=== PATIENT | male | born 1935 | race Caucasian/White ===

== ENCOUNTER 2016-10-11 18:02 | Inpatient (IN) ==
--- NOTE | 2016-10-11 19:52 | Internal Med History&Physical ---
Date of Encounter: 10/11/16 Time of Encounter: 19:47 Assessment and Plan (1) Physical deconditioning Current visit: Yes Status: Acute Patient is weak and has had physical deconditioning/decompensation since his prolonged hospitalization at [facility]. He will be here in a swing bed and have PT , OT, RT as well as prison care to improve his ADLs so he can safely return to home under the care of his . Currently he has to use a bedside commode. Consultations requested. (2) Atrial fibrillation and flutter Current visit: Yes Status: Chronic Patient has a chronic history of atrial fibrillation, intermittently had RVR and at times bradycardia. It was difficult to have him regulated without getting either extreme. Now has a pacemaker placed so we can avoid bradycardia. His diltiazem and beta ab has been increased to try to control the heart rate. He has no cardiac symptoms. He does not sense when he gets tachycardia. He is anticoagulated with Eliquis. (3) Diabetes mellitus Current visit: Yes Status: Chronic He has a long-standing history of diabetes and is well controlled. Continue the same medication for now. Qualifiers: Diabetes mellitus type: type 2 Diabetes mellitus complication status: without complication Diabetes mellitus rodent exterminator insulin use: without senior living use Qualified Code(s): E11.9 - Type 2 diabetes mellitus without complications (4) Hypertension Current visit: Yes Status: Chronic Patient has a history of long-standing hypertension. It is under reasonable control now. We will need to watch for hypotension as we increase his diltiazem and beta ab. Qualifiers: Hypertension type: essential hypertension Qualified Code(s): I10 - Essential (primary) hypertension (5) Parkinson disease Current visit: No Status: Chronic He has a history of Parkinson's with poor gait and decreased facial expression. We will continue the same medication. He appears to be at his baseline. (6) Pacemaker Current visit: Yes Status: Acute Dual chamber pacemaker was placed last Saturday. Occasional pacer spikes are seen on telemetry. Incision is healing well. (7) Pleural effusion Current visit: Yes Status: Acute Small pleural effusion on the left side. Hard to evaluate further because of chronic left diaphragm elevation. Will follow. (8) Chronic anticoagulation Current visit: Yes Status: Chronic Chronic anticoagulation with Eliquis for the atrial fibrillation. No side effects have been noted. Internal Medicine - H&P: HPI Chief complaint: I am here to get stronger Admitted From: Hospital to Hospital Transfer Plans for Post Hospital Care: Home History of present illness: Mr. Bach is a 80 year old male known history of diabetes mellitus, Parkinson' s disease, hypertension, atrial fibrillation who was transferred from [facility] today to swing bed because of deconditioning/weakness due to his cardiac issues. Patient has known history of atrial fibrillation/flutter and had episodes of a fib RVR, then when treated would become bradycardic and vice versa. Eventually he was able to get a pacemaker to help avoid the bradycardia. The pacer was placed last Saturday by Dr. Mueller. Since that time they have been increasing his diltiazem and beta ab to control the rate. There appears to be some underlying atrial flutter as well. Through all of this the patient has had no symptoms. He has had no angina. He has had no CHF. He has had a recent echocardiogram. He has left farideh diaphragm elevation and what appears to be small pleural effusion. Now he is having difficulties regaining his ADLs. He needs much assistance just taking a few steps. He is here for PT, OT, RT and ongoing prison care until he is strong enough to go home. He lives with his in a one- story apartment at [facility]. Past Med Surg Social Fam HX - Past Medical History Medical history: arthritis, atrial fibrillation, dementia, diabetes, GERD, GI bleed, hyperlipidemia, hypertension, SVT, TIA, other (Parkinson's disease) Psychiatric history: no psych history - Past Surgical History Surgical History: other, pacemaker - Social History Smoking Status: Never smoker Smokeless Tobacco Status: No Alcohol use: none Drug use: none Current living situation: Other (Lives with his and a 1 floor apartment at [facility]) Activity Level: Uses cane/walker Recent Out of Country Travel Within the Last 8 Weeks: No Exposure or Possible Exposure to Illness During Travel: No - Family History Father Living Status: Hx Family GI Disorders: Yes (History of hepatitis) Mother Living Status: Hx Family Cardiac Disorders: Yes (Unknown type of heart disease) Hx Family Respiratory Disorders: Yes (Asthma) Hx Family Cancer: Yes (Unknown type cancer) Internal Medicine - H&P: Meds Carbidopa/Levodopa ER 50/200 [Sinemet ER 50-200 Tab] 1 tab PO BID 08/10/15 [ History] Esomeprazole Magnesium [Nexium] 40 mg PO DAILY 08/10/15 [History] Finasteride [Proscar] 5 mg PO DAILY 08/10/15 [History] Lisinopril [Zestril] 10 mg PO DAILY 08/10/15 [History] Magnesium Oxide [Mag-Ox] 400 mg PO BID 08/10/15 [History] Metformin [Glucophage] 1,000 mg PO BIDWM 08/10/15 [History] Pravastatin Sodium [Pravachol] 80 mg PO DAILY 08/10/15 [History] Apixaban [Eliquis] 5 mg PO BID 12/21/15 [History] Oxygen 3 l NS CONT 01/30/16 [History] Promethazine [Phenergan] 25 mg PO Q6HR PRN 09/26/16 [History] Diltiazem CD (24hr) [Cardizem CD] 360 mg PO DAILY #30 cap.er.24h 10/11/16 [Rx] Furosemide [Lasix] 40 mg PO DAILY 10/11/16 [History] Metoprolol XL (24 HR) Succ [Toprol Xl] 100 mg PO BID 30 Days 10/11/16 [Rx] Allergies Hydromorphone [From Dilaudid] Allergy (Unknown, Verified 09/29/16 22:45) See Comments PATIENT UNSURE OF REACTION- NONE LISTED WITH [facility] Sulfa (Sulfonamide Antibiotics) Allergy (Unknown, Verified 09/29/16 22:45) See Comments PATIENT UNSURE OF REACTION- NONE LISTED WITH [facility] atorvastatin [From Lipitor] Adverse Reaction (Verified 09/29/16 22:45) Cramping of the Muscles guaifenesin Adverse Reaction (Verified 09/29/16 22:45) Dry Mucus Membranes - Constitutional Constitutional: weakness, no chills, no fever(s) - EENT Eyes: no loss of vision Ears: no ear discharge, no ear pain Nose, mouth and throat: no mouth pain, no neck pain - Cardiovascular Cardiovascular ROS IM: no chest pain, no dyspnea, no irregular heart rhythm, no lightheadedness, no palpitations - Respiratory Respiratory: no cough, no dyspnea - Gastrointestinal Gastrointestinal: constipation (Dates he has had constipation, but had a good bowel movement yesterday morning.), no abdominal pain, no diarrhea, no hematochezia, no melena - Genitourinary Genitourinary ROS male: no difficulty urinating, no dysuria - Musculoskeletal Musculoskeletal ROS IM: muscle weakness (Generalized muscular weakness with difficulties with walking in particular) - Integumentary Integumentary IM: no rash - Neurological Neurological ROS: no abnormal speech, no radicular pain Additional comments: He has a history of Parkinson's disease, slow gait and difficulties with his walking. He has decompensated since he was hospitalized. - Psychiatric Psychiatric: no auditory hallucinations, no suicidal ideation - Hematologic/Lymphatic Hematologic/Lymphatic: no lymphadenopathy - Constitutional Vitals: Temp Pulse Resp BP Pulse Ox 97.5 F L 78 15 127/76 88 L 10/11/16 18:23 10/11/16 18:23 10/11/16 18:23 10/11/16 18:23 10/11/16 18:23 General appearance: Present: A&O X 3, pleasant, no acute distress, obese Exam: Quiet and sometimes masklike facies - Eye Eye exam: Present: EOMI - ENT ENT exam: Present: mucous membranes moist Additional comments: Poor dentition, some missing teeth - Neck Neck exam general surgery: Absent: lymphadenopathy, tenderness, thyromegaly - Respiratory Additional comments: Slightly diminished breath sounds and crackles in the left base, few atelectatic crackles in the right base. Overall good air exchange. No respiratory distress. - Cardiovascular Cardiovascular exam: Present: irregular rhythm, +S1, +S2. Absent: systolic murmur Additional comments: Heart rate on the monitor is in the 80s. Occasional pacer spikes. Occasional PVC - GI/Abdominal GI/Abdominal exam: Present: soft, no peritoneal signs. Absent: hepatomegaly, tenderness - Extremities Exam Extremities exam: Absent: calf tenderness, pedal edema - Incison Comments: Left upper anterior chest pacemaker site has sterile dressing and Steri-Strips intact. No signs of infection. - Neurological Exam Neurological exam: Present: CN II-XII intact, oriented X3. Absent: speech deficit Additional comments: He is quiet, but can answer questions and speak normally. Masklike facies at times He has good upper body hand grasp. No obvious tremor. It took one person assist to get him to take 2 steps to get on the bedside commode as he is quite weak. Internal Med - H&P Results - Labs Labs: Lab work at [facility] has been reviewed. No significant abnormality in the CBC or in chemistry panel. Glycohemoglobin shows good control.
[2016-10-11] MEDS ORDERED: NON-FORMULARY MEDICATION 1 EACH EACH (Oxygen [Oxygen] 3 L) NS SCH (20:15)
[2016-10-11] MEDS: Magnesium Oxide 400 MG TABLET PO SCH (20:50)
[2016-10-11] MEDS: Carbidopa/Levodopa ER 50/200 TABLET PO SCH (20:50)
[2016-10-11] MEDS: Metoprolol XL (24 HR) Succ 50 MG TAB.ER.24H PO SCH (20:51)
[2016-10-11] MEDS: APIXABAN 5 MG TABLET PO SCH (20:51)
--- NOTE | 2016-10-12 07:22 | Internal Med Progress Note ---
Date of Encounter: 10/12/16 Time of Encounter: 07:17 - Assessment and plan (1) Physical deconditioning Current Visit: Yes Status: Acute Assessment and plan: He will have physical therapy starting today. The goal will be to reattain his ADLs to the point where he can go home and ambulate with his walker (2) Atrial fibrillation and flutter Current Visit: Yes Status: Chronic Assessment and plan: Continues with atrial fibrillation/flutter with controlled rate in the 80s to 90s at rest. We will see what happens with his therapy. May need to increase his meds further if becomes tachycardic. He has a pacer. (3) Diabetes mellitus Current Visit: Yes Status: Chronic Assessment and plan: Mild elevation of glucose to 190 last night. Fasting glucose pending. Overall his glycohemoglobin has been good and will likely not need change in his meds Qualifiers: Diabetes mellitus type: type 2 Diabetes mellitus complication status: without complication Diabetes mellitus local company intermodal truck driver insulin use: without local company intermodal truck driver use Qualified Code(s): E11.9 - Type 2 diabetes mellitus without complications (4) Hypertension Current Visit: Yes Status: Chronic Assessment and plan: Blood pressure has been on the low end of normal, likely due to increased diltiazem and beta ab. Will continue to monitor. Qualifiers: Hypertension type: essential hypertension Qualified Code(s): I10 - Essential (primary) hypertension (5) Parkinson disease Current Visit: No Status: Chronic Assessment and plan: His Parkinson's slows him down and contributes to his deconditioning. He will have therapies starting today. (6) Pacemaker Current Visit: Yes Status: Acute (7) Pleural effusion Current Visit: Yes Status: Acute Assessment and plan: Left diaphragm elevation chronically now with small pleural effusion. Not symptomatic. Will follow. (8) Chronic anticoagulation Current Visit: Yes Status: Chronic - Constitutional Vitals: Temp Pulse Resp BP Pulse Ox 97.7 F 80 16 102/66 93 L 10/12/16 04:51 10/12/16 04:51 10/12/16 04:51 10/12/16 04:51 10/12/16 04:51 General appearance: Present: A&O X 3, pleasant, no acute distress, obese - Respiratory Additional comments: Lungs are clear except for a few at atelectatic crackles in the bases, diminished breath sounds in the left base. No respiratory distress - Cardiovascular Cardiovascular exam: Present: irregular rhythm, +S1, +S2. Absent: systolic murmur Additional comments: Heart rate in the 80s to 90s at rest. Monitor shows atrial fib/flutter - GI/Abdominal GI/Abdominal exam: Present: soft. Absent: tenderness - Extremities Exam Extremities exam: Absent: calf tenderness, tenderness Consult Discharge Plan - Plan Referrals: Peter Mccallum MD [Primary Care Provider] -
[2016-10-12] MEDS: Metoprolol XL (24 HR) Succ 50 MG TAB.ER.24H PO SCH ×2 (08:25→20:17)
[2016-10-12] MEDS: *HR* Metformin 500 MG TABLET PO SCH ×2 (08:26→18:02)
[2016-10-12] MEDS: Carbidopa/Levodopa ER 50/200 TABLET PO SCH ×2 (08:26→20:18)
[2016-10-12] MEDS: Furosemide 20 MG TABLET PO SCH (08:26)
[2016-10-12] MEDS: Diltiazem CD (24hr) 180 MG CAPSULE PO SCH (08:26)
[2016-10-12] MEDS: APIXABAN 5 MG TABLET PO SCH ×2 (08:26→20:18)
[2016-10-12] MEDS: Finasteride 5 MG TABLET PO SCH (08:26)
[2016-10-12] MEDS: Magnesium Oxide 400 MG TABLET PO SCH ×2 (08:26→20:17)
[2016-10-13] MEDS: Diltiazem CD (24hr) 180 MG CAPSULE PO SCH (08:42)
[2016-10-13] MEDS: Furosemide 20 MG TABLET PO SCH (08:42)
[2016-10-13] MEDS: Magnesium Oxide 400 MG TABLET PO SCH ×2 (08:42→21:28)
[2016-10-13] MEDS: *HR* Metformin 500 MG TABLET PO SCH ×2 (08:42→17:09)
[2016-10-13] MEDS: Metoprolol XL (24 HR) Succ 50 MG TAB.ER.24H PO SCH ×2 (08:43→21:30)
[2016-10-13] MEDS: APIXABAN 5 MG TABLET PO SCH ×2 (08:43→21:28)
[2016-10-13] MEDS: Finasteride 5 MG TABLET PO SCH (08:43)
[2016-10-13] MEDS: Carbidopa/Levodopa ER 50/200 TABLET PO SCH ×2 (08:43→21:29)
--- NOTE | 2016-10-13 10:08 | Internal Med Progress Note ---
Date of Encounter: 10/13/16 Time of Encounter: 09:55 - Assessment and plan (1) Pacemaker Current Visit: Yes Status: Acute Assessment and plan: Monitor shows atrial fibrillation/flutter. Rate is controlled. Unable to increase his rate control meds now with the pacemaker in place. (2) Physical deconditioning Current Visit: Yes Status: Acute Assessment and plan: he patient feels he is improving. We will continue therapy as at present. He lives with his in a single floor apartment and goal is to have him discharged to home. He is agreeable to this plan. (3) Pleural effusion Current Visit: Yes Status: Acute Assessment and plan: Overall stable. Decreased breath sounds are noted. He denies symptoms of shortness of breath. (4) Atrial fibrillation and flutter Current Visit: Yes Status: Chronic Assessment and plan: Rate is controlled on metoprolol and diltiazem. (5) Chronic anticoagulation Current Visit: Yes Status: Chronic Assessment and plan: Continue Eliquis. (6) Diabetes mellitus Current Visit: Yes Status: Chronic Assessment and plan: Blood sugars been 94-173 on metformin. BUN and creatinine were normal on October 10. 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 Qualifiers: Hypertension type: essential hypertension Qualified Code(s): I10 - Essential (primary) hypertension (8) Acute kidney injury Current Visit: No Status: Acute (9) Atrial fibrillation Current Visit: No Status: Acute Qualifiers: Atrial fibrillation type: persistent Qualified Code(s): I48.1 - Persistent atrial fibrillation (10) Atrial fibrillation with rapid ventricular response Current Visit: No Status: Acute (11) Atrial flutter Current Visit: No Status: Acute Qualifiers: Atrial flutter type: unspecified Qualified Code(s): I48.92 - Unspecified atrial flutter (12) Bradycardia, drug induced Current Visit: No Status: Acute (13) Community acquired pneumonia Current Visit: No Status: Acute (14) DVT prophylaxis Current Visit: No Status: Acute (15) Gastroenteritis Current Visit: No Status: Acute (16) Hypomagnesemia Current Visit: No Status: Acute (17) Hypovolemic shock Current Visit: No Status: Acute (18) Hypoxia Current Visit: No Status: Acute (19) SVT (supraventricular tachycardia) Current Visit: No Status: Acute (20) Tachy-jose syndrome Current Visit: No Status: Acute (21) Atrial fibrillation Current Visit: No Status: Chronic Qualifiers: Atrial fibrillation type: paroxysmal Qualified Code(s): I48.0 - Paroxysmal atrial fibrillation (22) CAD (coronary artery disease) Current Visit: No Status: Chronic Qualifiers: Coronary Disease-Associated Artery/Lesion type: [place] artery [place] vs. transplanted heart: [place] heart Associated angina: without angina Qualified Code(s): I25.10 - Atherosclerotic heart disease of [place] coronary artery without angina pectoris (23) Chronic respiratory failure Current Visit: No Status: Chronic Qualifiers: Respiratory failure complication: hypoxia Qualified Code(s): J96.11 - Chronic respiratory failure with hypoxia (24) Congestive heart failure Current Visit: No Status: Chronic Qualifiers: Congestive heart failure type: diastolic Congestive heart failure chronicity: chronic Qualified Code(s): I50.32 - Chronic diastolic (congestive ) heart failure (25) Coronary artery disease with stable angina pectoris Current Visit: No Status: Chronic Qualifiers: Coronary Disease-Associated Artery/Lesion type: [place] artery [place] vs. transplanted heart: [place] heart Qualified Code(s): I25.118 - Atherosclerotic heart disease of [place] coronary artery with other forms of angina pectoris (26) Dementia Current Visit: No Status: Chronic Qualifiers: Qualified Code(s): F03.90 - Unspecified dementia without behavioral disturbance (27) Diastolic heart failure Current Visit: No Status: Chronic Qualifiers: Heart failure chronicity: chronic Qualified Code(s): I50.32 - Chronic diastolic (congestive) heart failure (28) History of chronic atrial fibrillation Current Visit: No Status: Chronic (29) Hyperlipidemia Current Visit: No Status: Chronic Qualifiers: Hyperlipidemia type: unspecified Qualified Code(s): E78.5 - Hyperlipidemia , unspecified (30) Parkinson disease Current Visit: No Status: Chronic Assessment and plan: He demonstrates some bradykinesia consistent with his Parkinson's. Continue Sinemet. (31) Type II diabetes mellitus Current Visit: No Status: Chronic Qualifiers: Diabetes mellitus complication status: without complication Qualified Code( s): E11.9 - Type 2 diabetes mellitus without complications - Time Spent With Patient 25 - 35 minutes - Subjective Interval history: The patient has no specific complaints today. He feels he's made some progress with getting a little better strength since coming here for rehabilitation. He denies any symptoms of palpitation at all. He states his appetite is improving and he's been eating about half of his meals. He denies chest pain or shortness of breath. - Constitutional Vitals: Temp Pulse Resp BP Pulse Ox 98.3 F 75 14 131/71 95 10/13/16 07:00 10/13/16 07:00 10/13/16 07:00 10/13/16 07:00 10/13/16 07:00 General appearance: Present: A&O X 3, pleasant, no acute distress, obese, answers questions appropriately Exam: He is not unpleasant but he does seem to avoid eye contact to some degree. - Respiratory Respiratory exam: Present: CTAB. Absent: accessory muscle use, rales, rhonchi, wheezes Additional comments: He does demonstrate decreased breath sounds at the left base. - Cardiovascular Cardiovascular exam: Present: irregular rhythm, +S1, +S2. Absent: diastolic murmur, gallop, rubs, systolic murmur Additional comments: Rhythm is irregularly irregular. Heart rate this morning is 75. Blood pressures 131/71. I looked at the air sampling and monitoring she is in atrial fibrillation/ flutter. O2 sat is 95%. - GI/Abdominal GI/Abdominal exam: Present: soft, no peritoneal signs. Absent: distended, guarding, mass, rebound, tenderness - Extremities Exam Extremities exam: Present: warm. Absent: calf tenderness, cyanotic, pedal edema Consult Discharge Plan - Plan Referrals: Peter Mccallum MD [Primary Care Provider] -
[2016-10-14] MEDS: Metoprolol XL (24 HR) Succ 50 MG TAB.ER.24H PO SCH ×2 (07:57→20:50)
[2016-10-14] MEDS: *HR* Metformin 500 MG TABLET PO SCH ×2 (07:57→16:05)
[2016-10-14] MEDS: Furosemide 20 MG TABLET PO SCH (07:57)
[2016-10-14] MEDS: Diltiazem CD (24hr) 180 MG CAPSULE PO SCH (07:57)
[2016-10-14] MEDS: Finasteride 5 MG TABLET PO SCH (07:57)
[2016-10-14] MEDS: Magnesium Oxide 400 MG TABLET PO SCH ×2 (07:57→20:49)
[2016-10-14] MEDS: APIXABAN 5 MG TABLET PO SCH ×2 (07:57→20:50)
[2016-10-14] MEDS: Carbidopa/Levodopa ER 50/200 TABLET PO SCH ×2 (07:58→20:50)
--- NOTE | 2016-10-14 12:15 | Internal Med Progress Note ---
Date of Encounter: 10/14/16 Time of Encounter: 12:00 - Assessment and plan (1) Pacemaker Current Visit: Yes Status: Acute Assessment and plan: I don't see any paced beats on the monitor. He has follow-up visit with Dr. Mueller on October 17. We'll leave his sutures and until then. (2) Physical deconditioning Current Visit: Yes Status: Acute Assessment and plan: He is making progress with therapy. Plan is for discharge home to his apartment with his . (3) Pleural effusion Current Visit: Yes Status: Acute Assessment and plan: He denies shortness of breath. (4) Atrial fibrillation and flutter Current Visit: Yes Status: Chronic (5) Chronic anticoagulation Current Visit: Yes Status: Chronic Assessment and plan: Continue Eliquis, he may eventually get ablation. (6) Diabetes mellitus Current Visit: Yes Status: Chronic Assessment and plan: Fingerstick blood sugars are 160, 120 and 216. We can continue as at present. He 's on metformin but his renal function is okay. Qualifiers: Diabetes mellitus type: type 2 Diabetes mellitus complication status: without complication Diabetes mellitus halfway insulin use: without marine oil terminal superintendent use Qualified Code(s): E11.9 - Type 2 diabetes mellitus without complications (7) Hypertension Current Visit: Yes Status: Chronic Assessment and plan: Blood pressure is at goal at 131/71. Qualifiers: Hypertension type: essential hypertension Qualified Code(s): I10 - Essential (primary) hypertension (8) Acute kidney injury Current Visit: No Status: Acute Assessment and plan: Recent renal function was normal. (9) Atrial fibrillation Current Visit: No Status: Acute Assessment and plan: I'm Hari HassanDwayne. Qualifiers: Atrial fibrillation type: persistent Qualified Code(s): I48.1 - Persistent atrial fibrillation (10) Atrial fibrillation with rapid ventricular response Current Visit: No Status: Acute Assessment and plan: Rate is controlled. (11) Atrial flutter Current Visit: No Status: Acute Qualifiers: Atrial flutter type: unspecified Qualified Code(s): I48.92 - Unspecified atrial flutter (12) Bradycardia, drug induced Current Visit: No Status: Acute (13) Community acquired pneumonia Current Visit: No Status: Acute (14) DVT prophylaxis Current Visit: No Status: Acute Assessment and plan: On TONNY hose, anticoagulated. (15) Gastroenteritis Current Visit: No Status: Acute (16) Hypomagnesemia Current Visit: No Status: Acute (17) Hypovolemic shock Current Visit: No Status: Acute (18) Hypoxia Current Visit: No Status: Acute (19) SVT (supraventricular tachycardia) Current Visit: No Status: Acute (20) Tachy-jose syndrome Current Visit: No Status: Acute (21) Atrial fibrillation Current Visit: No Status: Chronic Qualifiers: Atrial fibrillation type: paroxysmal Qualified Code(s): I48.0 - Paroxysmal atrial fibrillation (22) CAD (coronary artery disease) Current Visit: No Status: Chronic Qualifiers: Coronary Disease-Associated Artery/Lesion type: campo artery [place] vs. transplanted heart: campo heart Associated angina: without angina Qualified Code(s): I25.10 - Atherosclerotic heart disease of campo coronary artery without angina pectoris (23) Chronic respiratory failure Current Visit: No Status: Chronic Qualifiers: Respiratory failure complication: hypoxia Qualified Code(s): J96.11 - Chronic respiratory failure with hypoxia (24) Congestive heart failure Current Visit: No Status: Chronic Assessment and plan: Denies shortness breath or chest discomfort. Qualifiers: Congestive heart failure type: diastolic Congestive heart failure chronicity: chronic Qualified Code(s): I50.32 - Chronic diastolic (congestive ) heart failure (25) Coronary artery disease with stable angina pectoris Current Visit: No Status: Chronic Assessment and plan: Asymptomatic. Qualifiers: Coronary Disease-Associated Artery/Lesion type: campo artery [place] vs. transplanted heart: campo heart Qualified Code(s): I25.118 - Atherosclerotic heart disease of campo coronary artery with other forms of angina pectoris (26) Dementia Current Visit: No Status: Chronic Qualifiers: Qualified Code(s): F03.90 - Unspecified dementia without behavioral disturbance (27) Diastolic heart failure Current Visit: No Status: Chronic Qualifiers: Heart failure chronicity: chronic Qualified Code(s): I50.32 - Chronic diastolic (congestive) heart failure (28) History of chronic atrial fibrillation Current Visit: No Status: Chronic (29) Hyperlipidemia Current Visit: No Status: Chronic Qualifiers: Hyperlipidemia type: unspecified Qualified Code(s): E78.5 - Hyperlipidemia , unspecified (30) Parkinson disease Current Visit: No Status: Chronic Assessment and plan: He seems a little improved today. He is able to feed himself easily. I observed his gait yesterday with the walker and therapist, he is doing pretty well. (31) Type II diabetes mellitus Current Visit: No Status: Chronic Qualifiers: Diabetes mellitus complication status: without complication Qualified Code( s): E11.9 - Type 2 diabetes mellitus without complications - Time Spent With Patient 25 - 35 minutes - Subjective Interval history: No complaints today. His is present for my visit today. She feels he is making progress. Her goal is for him to be ambulatory enough to get along all right in their apartment when he goes home. He denies palpitations, shortness of breath or chest discomfort. She tells me he has a follow-up appointment with his giving officer Dr. Mueller in 3 days. They're hoping to eventually do an ablation so he doesn't have to stay on anticoagulant. - Constitutional Vitals: Temp Pulse Resp BP Pulse Ox 98.5 F 88 16 120/86 94 L 10/14/16 11:48 10/14/16 11:48 10/14/16 11:48 10/14/16 11:48 10/14/16 11:48 General appearance: Present: A&O X 3, pleasant, no acute distress, obese, answers questions appropriately Exam: He seems a little more energetic today. He and his interact in a positive manner. - Respiratory Respiratory exam: Absent: accessory muscle use, rales, respiratory distress, rhonchi, wheezes Additional comments: Decreased breath sounds at left base consistent with his pleural effusion. - Cardiovascular Cardiovascular exam: Present: irregular rhythm (His rhythm is irregularly irregular.I reviewed his telemetry strip which shows a fib, rate controlled.), + S1, +S2. Absent: diastolic murmur, gallop, rubs, systolic murmur - Extremities Exam Extremities exam: Present: warm. Absent: calf tenderness, cyanotic, pedal edema - Neurological Exam Additional comments: Bradykinesia seems a little improved. I observed that he is able to feed himself easily and has a good appetite. Consult Discharge Plan - Plan Referrals: Peter Mccallum MD [Primary Care Provider] -
--- NOTE | 2016-10-15 07:09 | Internal Med Progress Note ---
Date of Encounter: 10/15/16 Time of Encounter: 07:01 - Assessment and plan (1) Physical deconditioning Current Visit: Yes Status: Acute Assessment and plan: He will resume therapies today. Continued restrictions to the left upper extremity due to his pacemaker. Will plan to increase his ADLs and functional capacity so we can go home. (2) Atrial fibrillation and flutter Current Visit: Yes Status: Chronic Assessment and plan: Continued atrial fib/flutter with controlled heart rate typically in the 80s. Continue current medication. Blood pressure stable. (3) Diabetes mellitus Current Visit: Yes Status: Chronic Assessment and plan: Sugars are minimally elevated. No coverage needed. Qualifiers: Diabetes mellitus type: type 2 Diabetes mellitus complication status: without complication Diabetes mellitus building engineer insulin use: without building engineer use Qualified Code(s): E11.9 - Type 2 diabetes mellitus without complications (4) Hypertension Current Visit: Yes Status: Chronic Assessment and plan: Blood pressure is under good control. Qualifiers: Hypertension type: essential hypertension Qualified Code(s): I10 - Essential (primary) hypertension (5) Parkinson disease Current Visit: No Status: Chronic Assessment and plan: Stable at this time. No exacerbation. (6) Pacemaker Current Visit: Yes Status: Acute Assessment and plan: The pacemaker site looks good. Dressing removed and Steri-Strips intact and clean and dry. There is no tenderness. We will have follow up with Dr. Mueller on Saturday. (7) Pleural effusion Current Visit: Yes Status: Acute Assessment and plan: No symptoms. (8) Chronic anticoagulation Current Visit: Yes Status: Chronic (9) Abdominal mass Current Visit: Yes Status: Acute Assessment and plan: Today he has a firm abdominal mass with dullness to percussion. He has no complaints or tenderness. No nausea or vomiting. I suspect this is a distended bladder or possibly stool. We will do a bladder scan 1st. We also need to add a stool softener or laxative. Qualifiers: Abdominal location: periumbilical Qualified Code(s): R19.05 - Periumbilic swelling, mass or lump - Subjective Interval history: Patient denies a cardiac type chest pain or palpitations, dyspnea or abdominal pain. He states his bowels have not moved since he was admitted 4 days ago. His bowels do not move everyday at home. He thinks he his urinating okay. He denies any fever or chills. According to records he is eating well. No bowel movement documented. Nurses report that he is using a walker and bedside commode. He states he has not been walking in the hallways, using a wheelchair to go to therapy. - Constitutional Vitals: Temp Pulse Resp BP Pulse Ox 99.0 F 84 16 120/82 91 L 10/15/16 01:00 10/15/16 01:00 10/15/16 01:00 10/15/16 01:00 10/15/16 01:00 General appearance: Present: A&O X 3, pleasant, no acute distress, obese, answers questions appropriately - Respiratory Additional comments: Rare dry crackles in the basis. The respiratory distress. No orthopnea. Lungs are otherwise clear. - Cardiovascular Cardiovascular exam: Present: irregular rhythm, +S1, +S2. Absent: systolic murmur - GI/Abdominal Additional comments: Large firm " mass" in the umbilical area with dullness to percussion. It is nontender. Bowel sounds are diminished but present in the lateral quadrants. There is no guarding or rebound or rigidity. There is no tight distention. - Extremities Exam Extremities exam: Absent: calf tenderness, tenderness - Incison Comments: Pacemaker site was evaluated. Dressing was removed and discarded. There is no drainage. The Steri-Strips are intact. There is no redness, fluctulence or tenderness. - Neurological Exam Additional comments: Flat affect as usual. Masklike facies. No tremor, but paucity of movement noted Consult Discharge Plan - Plan Referrals: Peter Mccallum MD [Primary Care Provider] -
[2016-10-15] MEDS: Metoprolol XL (24 HR) Succ 50 MG TAB.ER.24H PO SCH ×2 (09:14→20:33)
[2016-10-15] MEDS: Furosemide 20 MG TABLET PO SCH (09:15)
[2016-10-15] MEDS: Carbidopa/Levodopa ER 50/200 TABLET PO SCH ×2 (09:15→20:34)
[2016-10-15] MEDS: *HR* Metformin 500 MG TABLET PO SCH ×2 (09:15→17:20)
[2016-10-15] MEDS: APIXABAN 5 MG TABLET PO SCH ×2 (09:15→20:33)
[2016-10-15] MEDS: Finasteride 5 MG TABLET PO SCH (09:15)
[2016-10-15] MEDS: Magnesium Oxide 400 MG TABLET PO SCH ×2 (09:15→20:34)
[2016-10-15] MEDS: Diltiazem CD (24hr) 180 MG CAPSULE PO SCH (09:15)
--- NOTE | 2016-10-16 06:53 | Internal Med Progress Note ---
Date of Encounter: 10/16/16 Time of Encounter: 06:48 - Assessment and plan (1) Physical deconditioning Current Visit: Yes Status: Acute Assessment and plan: He will continue with therapies. Goal is to regain his ADL so he can be safe to go home. (2) Atrial fibrillation and flutter Current Visit: Yes Status: Chronic Assessment and plan: Continues with atrial flutter/fib with controlled rate typically in the 80s. He is anticoagulated. (3) Diabetes mellitus Current Visit: Yes Status: Chronic Assessment and plan: Sugars are under adequate control. Qualifiers: Diabetes mellitus type: type 2 Diabetes mellitus complication status: without complication Diabetes mellitus [facility] insulin use: without ferry terminal supervisor use Qualified Code(s): E11.9 - Type 2 diabetes mellitus without complications (4) Hypertension Current Visit: Yes Status: Chronic Assessment and plan: Blood pressure well-controlled. Sometimes on the low side and will follow. Qualifiers: Hypertension type: essential hypertension Qualified Code(s): I10 - Essential (primary) hypertension (5) Parkinson disease Current Visit: No Status: Chronic (6) Pacemaker Current Visit: Yes Status: Acute Assessment and plan: He has his pacemaker checked tomorrow by the boarder hand. (7) Pleural effusion Current Visit: Yes Status: Acute (8) Chronic anticoagulation Current Visit: Yes Status: Chronic (9) Abdominal mass Current Visit: Yes Status: Resolved Assessment and plan: The "mass" was his bladder with 1800 ML's of urine. Continue straight intermittently for acute retention Qualifiers: Abdominal location: periumbilical Qualified Code(s): R19.05 - Periumbilic swelling, mass or lump (10) Urinary retention Current Visit: Yes Status: Acute Assessment and plan: Straight cath intermittently for urine retention. Encourage frequent toileting - Subjective Interval history: Patient denies any acute symptoms or problems this morning. He said that he did sleep. He had urinary retention of 1800 ML's yesterday morning, and has needed intermittent catheterization. There are times when he is not interested in trying to empty his bladder. The retention is in the 700 to 800 ML's at times. He denies any cardiac or respiratory symptoms. No abdominal pain. When asked how his therapy went yesterday, he said he could not walk because of his knee brace. He feels like his knee will give out. He states he has not been walking. He has been eating well and bowels have moved. - Constitutional Vitals: Temp Pulse Resp BP Pulse Ox 98.4 F 83 16 110/72 87 L 10/16/16 05:00 10/16/16 05:00 10/16/16 05:00 10/16/16 05:00 10/16/16 05:00 General appearance: Present: A&O X 3, pleasant, no acute distress, obese, answers questions appropriately - Respiratory Respiratory exam: Present: CTAB - Cardiovascular Cardiovascular exam: Present: irregular rhythm, +S1, +S2. Absent: systolic murmur - GI/Abdominal GI/Abdominal exam: Present: soft. Absent: mass, tenderness - Extremities Exam Extremities exam: Absent: calf tenderness, pedal edema Additional comments: He is wearing a soft right knee brace/sleeve. He has good range of motion passively. No edema. No redness. Consult Discharge Plan - Plan Referrals: Peter Mccallum MD [Primary Care Provider] -
[2016-10-16] MEDS: Finasteride 5 MG TABLET PO SCH (08:39)
[2016-10-16] MEDS: Magnesium Oxide 400 MG TABLET PO SCH ×2 (08:39→20:38)
[2016-10-16] MEDS: Diltiazem CD (24hr) 180 MG CAPSULE PO SCH (08:39)
[2016-10-16] MEDS: Furosemide 20 MG TABLET PO SCH (08:39)
[2016-10-16] MEDS: APIXABAN 5 MG TABLET PO SCH ×2 (08:40→20:37)
[2016-10-16] MEDS: Carbidopa/Levodopa ER 50/200 TABLET PO SCH ×2 (08:40→20:38)
[2016-10-16] MEDS: Metoprolol XL (24 HR) Succ 50 MG TAB.ER.24H PO SCH ×2 (08:40→20:38)
[2016-10-16] MEDS: *HR* Metformin 500 MG TABLET PO SCH ×2 (08:40→18:12)
[2016-10-17] MEDS: Metoprolol XL (24 HR) Succ 50 MG TAB.ER.24H PO SCH ×2 (07:53→21:29)
[2016-10-17] MEDS: *HR* Metformin 500 MG TABLET PO SCH ×2 (07:53→17:45)
[2016-10-17] MEDS: Magnesium Oxide 400 MG TABLET PO SCH ×2 (07:53→21:30)
[2016-10-17] MEDS: Finasteride 5 MG TABLET PO SCH (07:54)
[2016-10-17] MEDS: Diltiazem CD (24hr) 180 MG CAPSULE PO SCH (07:54)
[2016-10-17] MEDS: APIXABAN 5 MG TABLET PO SCH ×2 (07:54→21:29)
[2016-10-17] MEDS: Carbidopa/Levodopa ER 50/200 TABLET PO SCH ×2 (07:54→21:30)
[2016-10-17] MEDS: Furosemide 20 MG TABLET PO SCH (07:54)
--- NOTE | 2016-10-17 14:53 | Electrocardiograph Report ---
[place] [address] Test Date: 2016-10-17 Pat Name: Cole Bach Department: [id number] Room: 115 Gender: M Global [employer]: : [id number] Requested By: Peter Mccallum Order Number: [id number] Reading MD: Beverly Mueller Measurements Intervals Blount Rate: 60 P: VT: 0 QRS: -42 QRSD: 145 T: 73 QT: 482 QTc: 482 Interpretive Statements ELECTRONIC VENTRICULAR PACEMAKER Electronically Signed On 10-17-2016 14:51:08 EST by Beverly Mueller
--- NOTE | 2016-10-17 22:36 | Internal Med Progress Note ---
Date of Encounter: 10/17/16 Time of Encounter: 22:30 - Assessment and plan (1) Physical deconditioning Current Visit: Yes Status: Acute Assessment and plan: He has a tentative discharge date of Saturday if he resumes therapy and does well. (2) Atrial fibrillation and flutter Current Visit: Yes Status: Chronic Assessment and plan: He saw Dr. Mueller the cement sack breaker today. Lanoxin has been added. No other intervention needed. He did not think he needed to see him for 6 months. No angina. No CHF. (3) Diabetes mellitus Current Visit: Yes Status: Chronic Qualifiers: Diabetes mellitus type: type 2 Diabetes mellitus complication status: without complication Diabetes mellitus long-term insulin use: without long-term use Qualified Code(s): E11.9 - Type 2 diabetes mellitus without complications (4) Hypertension Current Visit: Yes Status: Chronic Qualifiers: Hypertension type: essential hypertension Qualified Code(s): I10 - Essential (primary) hypertension (5) Parkinson disease Current Visit: No Status: Chronic (6) Pacemaker Current Visit: Yes Status: Acute (7) Pleural effusion Current Visit: Yes Status: Acute (8) Chronic anticoagulation Current Visit: Yes Status: Chronic (9) Abdominal mass Current Visit: Yes Status: Resolved Qualifiers: Abdominal location: periumbilical Qualified Code(s): R19.05 - Periumbilic swelling, mass or lump (10) Urinary retention Current Visit: Yes Status: Acute - Subjective Interval history: Patient voices no acute symptoms. Denies chest pain, palpitation, respiratory symptoms. Nurses report that he refused to have therapy when he came back from the cement sack breaker office today. He has had to be straight cathed for urine retention. - Constitutional Vitals: Temp Pulse Resp BP Pulse Ox 98.6 F 92 14 102/71 91 L 10/17/16 21:00 10/17/16 21:00 10/17/16 21:00 10/17/16 21:00 10/17/16 21:00 General appearance: Present: A&O X 3, pleasant, no acute distress, obese, answers questions appropriately - Respiratory Respiratory exam: Present: CTAB - Cardiovascular Cardiovascular exam: Present: irregular rhythm, +S1, +S2. Absent: systolic murmur - GI/Abdominal GI/Abdominal exam: Present: soft. Absent: tenderness - Extremities Exam Extremities exam: Absent: calf tenderness, pedal edema, tenderness Consult Discharge Plan - Plan Referrals: Peter Mccallum MD [Primary Care Provider] -
[2016-10-18 05:35] LABS: Basophils # 0.1 K/mcL (0.0-0.2); Basophils % 0.5 %; Eosinophils # 0.5 K/mcL (0.0-0.6); Eosinophils % 4.6 %; Hematocrit 31.7 % (37.5-50.1); Hemoglobin 10.6 g/dL (12.9-16.9); Immature Granulocytes % 1.1 % (0-4); Lymphocytes # 1.1 K/mcL (0.6-4.6); Mean Corpuscular HGB Conc 33.4 g/dL (31.6-35.5); Mean Corpuscular Hemoglobin 31.1 pg (28.0-33.3); Mean Platelet Volume 9.1 fL (9.4-12.4); Monocytes # 0.9 K/mcL (0.0-1.3); Monocytes % 8.8 %; Neutrophils # 7.2 K/mcL (1.6-8.9); Platelet Count 275 K/mcL (140-400); Red Blood Count 3.41 M/mcL (4.19-5.50); Red Cell Distribution Width 14.1 % (11.5-14.5)
[2016-10-18 05:51] LABS: BUN/Creatinine Ratio 22 (6-26); Blood Urea Nitrogen 20 mg/dL (8-26); Calcium 8.8 mg/dL (8.6-10.8); Carbon Dioxide 27 mEq/L (19-29); Chloride 101 mEq/L (98-109); Chol/HDL Ratio 3.3 (0-4.9); Cholesterol 106 mg/dL (< 200); Glucose 97 mg/dL (70-99); HDL Cholesterol 32 mg/dL (40-59); LDL Cholesterol,Calculated 53 mg/dL (0-99); Osmolality,Calculated 291 (280-300); Potassium 3.9 mEq/L (3.5-4.5); Sodium 139 mEq/L (136-145); Triglycerides 105 mg/dL (< 150); eGFR For African Americans > 60 (> 60); eGFR For Non-African Americans > 60 (> 60)
[2016-10-18] MEDS: Metoprolol XL (24 HR) Succ 50 MG TAB.ER.24H PO SCH ×2 (09:04→20:57)
[2016-10-18] MEDS: Diltiazem CD (24hr) 180 MG CAPSULE PO SCH (09:04)
[2016-10-18] MEDS: APIXABAN 5 MG TABLET PO SCH ×2 (09:04→20:57)
[2016-10-18] MEDS: *HR* Digoxin 0.125 MG TABLET PO SCH (09:04)
[2016-10-18] MEDS: Furosemide 20 MG TABLET PO SCH (09:04)
[2016-10-18] MEDS: *HR* Metformin 500 MG TABLET PO SCH ×2 (09:04→17:17)
[2016-10-18] MEDS: Finasteride 5 MG TABLET PO SCH (09:04)
[2016-10-18] MEDS: Carbidopa/Levodopa ER 50/200 TABLET PO SCH ×2 (09:04→20:57)
[2016-10-18] MEDS: Magnesium Oxide 400 MG TABLET PO SCH ×2 (09:05→20:57)
--- NOTE | 2016-10-18 12:13 | Internal Med Progress Note ---
Date of Encounter: 10/18/16 Time of Encounter: 11:54 - Assessment and plan (1) Physical deconditioning Current Visit: Yes Status: Acute Assessment and plan: He is undergoing PT and OT for deconditioning following his hospitalization at [facility]. It is reported that the therapies feel he will be able and safe to be discharged to home tomorrow. (2) Atrial fibrillation and flutter Current Visit: Yes Status: Chronic Assessment and plan: Continue atrial fib/flutter but controlled rate. Lanoxin/dig started today as per the advanced solutions architect recommendation. (3) Diabetes mellitus Current Visit: Yes Status: Chronic Assessment and plan: Sugars are minimally elevated. Overall glycohemoglobin is showing good control. Qualifiers: Diabetes mellitus type: type 2 Diabetes mellitus complication status: without complication Diabetes mellitus [facility] insulin use: without [facility] use Qualified Code(s): E11.9 - Type 2 diabetes mellitus without complications (4) Hypertension Current Visit: Yes Status: Chronic Assessment and plan: Blood pressure is adequately controlled. Qualifiers: Hypertension type: essential hypertension Qualified Code(s): I10 - Essential (primary) hypertension (5) Parkinson disease Current Visit: No Status: Chronic Assessment and plan: Neurologically he is stable. (6) Pacemaker Current Visit: Yes Status: Acute Assessment and plan: Pacemaker site looks good. Steri-Strips in place and no signs of infection. (7) Pleural effusion Current Visit: Yes Status: Acute (8) Chronic anticoagulation Current Visit: Yes Status: Chronic (9) Abdominal mass Current Visit: Yes Status: Inactive Qualifiers: Abdominal location: periumbilical Qualified Code(s): R19.05 - Periumbilic swelling, mass or lump (10) Urinary retention Current Visit: Yes Status: Acute Assessment and plan: Continued urinary retention. He seems to be resistant to having the nurses catheterize him and resistant to frequent toileting to prevent retention. Risks discussed with patient. - Subjective Interval history: Patient denies any acute symptoms. He denies any chest pain, palpitation, dyspnea. He is participating in therapy. He is resisting straight catheterization of his bladder for retained urine. - Constitutional Vitals: Temp Pulse Resp BP Pulse Ox 97.7 F 76 20 98/63 95 10/18/16 11:51 10/18/16 11:51 10/18/16 11:51 10/18/16 11:51 10/18/16 11:51 General appearance: Present: A&O X 3, pleasant, no acute distress, obese, answers questions appropriately - Respiratory Respiratory exam: Present: CTAB - Cardiovascular Cardiovascular exam: Present: irregular rhythm, +S1, +S2. Absent: systolic murmur - GI/Abdominal Additional comments: Bladder appears to be distended to the level of the umbilicus. His abdomen is nontender. No guarding or rebound or rigidity. - Extremities Exam Extremities exam: Absent: calf tenderness, pedal edema Internal Medicine: Result - Labs CBC & Chem 7: 10/18/16 05:10 10/18/16 05:10 Labs: Short CBC 10/18/16 Range/Units 05:10 WBC 9.7 (4.3-11.1) K/mcL Hgb 10.6 L (12.9-16.9) g/dL Hct 31.7 L (37.5-50.1) % Plt Count 275 (140-400) K/mcL Neutrophils # 7.2 (1.6-8.9) K/mcL BMP 10/18/16 05:10 Sodium 139 Potassium 3.9 Chloride 101 Carbon Dioxide 27 BUN 20 Creatinine 0.93 Glucose 97 Calcium 8.8 Consult Discharge Plan - Plan Referrals: Peter Mccallum MD [Primary Care Provider] -
--- NOTE | 2016-10-18 22:17 | Physician Discharge Referral ---
Home Health/Hosp Referral Info Transfer to: Home Health Attending Provider: Peter Mccallum Provider in Charge Post Discharge: PCP - Diagnosis (1) Physical deconditioning Priority: Primary Status: Acute (2) Atrial fibrillation and flutter Priority: Secondary Status: Chronic (3) Diabetes mellitus Priority: Secondary Status: Chronic (4) Hypertension Priority: Secondary Status: Chronic (5) Parkinson disease Priority: Secondary Status: Chronic (6) Pacemaker Priority: Secondary Status: Acute (7) Pleural effusion Priority: Secondary Status: Acute (8) Chronic anticoagulation Priority: Secondary Status: Chronic (9) Urinary retention Priority: Secondary Status: Acute - Respiratory Orders Oxygen / L per min (2-3 L/NC) Smoking Cessation: Smoking cessation has been advised. For more information, call the Teach Me To Be Tobacco Quit Line at 2-889-MNNF-NOW. - Dressing/Wound Care Site: Left ant chest / pacemaker incision Type of Dressing/Treatments w/Frequency: steristrips,no intervention needed - Diet/Nutrition Diet/Nutrition Orders: No Concentrated Sweets - Activity Activity Orders: Walker - Services Needed Following services are medically necessary services: Nursing, Physical Therapy - Transfer Medications Prescriptions: Furosemide [Lasix] 40 mg PO DAILY #30 tablet Metoprolol XL (24 HR) Succ [Toprol Xl] 100 mg PO BID #60 tab.er.24h Home Medications: Carbidopa/Levodopa ER 50/200 [Sinemet ER 50-200 Tab] 1 tab PO BID 08/10/15 [ History] Esomeprazole Magnesium [Nexium] 40 mg PO DAILY 08/10/15 [History] Finasteride [Proscar] 5 mg PO DAILY 08/10/15 [History] Lisinopril [Zestril] 10 mg PO DAILY 08/10/15 [History] Magnesium Oxide [Mag-Ox] 400 mg PO BID 08/10/15 [History] Metformin [Glucophage] 1,000 mg PO BIDWM 08/10/15 [History] Pravastatin Sodium [Pravachol] 80 mg PO DAILY 08/10/15 [History] Apixaban [Eliquis] 5 mg PO BID 12/21/15 [History] Oxygen 3 l NS CONT 01/30/16 [History] Diltiazem CD (24hr) [Cardizem CD] 360 mg PO DAILY #30 cap.er.24h 10/11/16 [Rx] Metoprolol XL (24 HR) Succ [Toprol Xl] 100 mg PO BID 30 Days 10/11/16 [Rx] Furosemide [Lasix] 40 mg PO DAILY #30 tablet 10/18/16 [Rx] Metoprolol XL (24 HR) Succ [Toprol Xl] 100 mg PO BID #60 tab.er.24h 10/18/16 [Rx ] Allergies/Adverse Reactions: Allergies Hydromorphone [From Dilaudid] Allergy (Unknown, Verified 09/29/16 22:45) See Comments PATIENT UNSURE OF REACTION- NONE LISTED WITH [facility] Sulfa (Sulfonamide Antibiotics) Allergy (Unknown, Verified 09/29/16 22:45) See Comments PATIENT UNSURE OF REACTION- NONE LISTED WITH [facility] atorvastatin [From Lipitor] Adverse Reaction (Verified 09/29/16 22:45) Cramping of the Muscles guaifenesin Adverse Reaction (Verified 09/29/16 22:45) Dry Mucus Membranes Certification: Further, I certify that my clinical findings support that this patient is homebound (i.e. absences from home require considerable and taxing effort and are for medical reasons or gnosticism services or infrequently or short duration when for other reasons) because: Patient has troubles with ambulation. He has generalized weakness. He is requiring physical therapy. He requires oxygen therapy continuously. Homebound Reason: Patient requires assistance of a person or device to safely leave home, Leaving home requires considerable and taxing effort due to condition, Severity of cardiac or pulmonary status limits activity tolerance Attestation: My signature below is to certify that this patient is under my care and that I, or nurse practitioner, or a physician's gift shop assistant working with me, has a face-to -face encounter with this patient.
--- NOTE | 2016-10-18 22:28 | Discharge Summary ---
Date of Encounter: 10/19/16 Time of Encounter: 07:00 - Discharge Diagnosis (1) Physical deconditioning Priority: Primary Status: Acute Comments: Patient was admitted to [facility] swing bed following extended stay at [place] for cardiac issues fibrillation/flutter and required pacemaker placement. He was too weak to go home to maintain his ADLs. He was transferred to our facility and underwent PT and OT. Therapy departments feel he is at the point where it is safe to send him home and have ongoing home health and home physical therapy. (2) Atrial fibrillation and flutter Priority: Secondary Status: Chronic Comments: Patient has a history of atrial fibrillation/flutter that was difficult to control as he developed either bradycardia or tachycardia. Pacemaker was placed and bradycardia. His beta ab and calcium channel ab was increased and cardiology added Lanoxin this week. He continues with an irregular heart rhythm and rate controlled in the 80s typically. He has no cardiac symptoms. No CHF or angina. (3) Diabetes mellitus Priority: Secondary Status: Chronic Comments: As long-standing history of diabetes. His blood sugars have been minimally elevated. His glycohemoglobin is 6.0%. He continues with his oral agents. No other intervention needed for now. He should avoid concentrated sweets. Qualifiers: Diabetes mellitus type: type 2 Diabetes mellitus complication status: without complication Diabetes mellitus change number operator insulin use: without change number operator use Qualified Code(s): E11.9 - Type 2 diabetes mellitus without complications (4) Hypertension Priority: Secondary Status: Chronic Comments: History of hypertension. It is well controlled now. No significant hypotension despite increasing his medication for his dysrhythmia. Qualifiers: Hypertension type: essential hypertension Qualified Code(s): I10 - Essential (primary) hypertension (5) Parkinson disease Priority: Secondary Status: Chronic Comments: His true Parkinson's disease and takes Sinemet. He is slow with his gait and has paucity of facial and speech. No significant cogwheeling tremor noted. No difficulties with swallowing. (6) Pacemaker Priority: Secondary Status: Acute Comments: Regular placed to prevent bradycardia. The pacemaker site is healing well. Steri-Strips are intact. He had follow-up with Dr. Mueller this week. (7) Pleural effusion Priority: Secondary Status: Acute Comments: Small left pleural effusion noted on chest x-ray. Patient has had no respiratory compromise. Lasix was increased. No other intervention for now. (8) Chronic anticoagulation Priority: Secondary Status: Chronic Comments: Because of his atrial fibrillation/flutter he is taking Eliquis. No side effects have been noted. (9) Urinary retention Priority: Secondary Status: Acute Comments: In the hospital stay he was noted to have urinary retention. At one time he had 1800 mL's of urine. He has required intermittent straight catheterization. Has not had to have the nurses straight catheter as often as ordered. He said things would work out well at home and he refused frequent toileting. This will be followed at home and may need urological consultation. Renal function/creatinine is normal. - Discharge Medications Prescriptions: Furosemide [Lasix] 40 mg PO DAILY #30 tablet Home Medications: Carbidopa/Levodopa ER 50/200 [Sinemet ER 50-200 Tab] 1 tab PO BID 08/10/15 [ History] Esomeprazole Magnesium [Nexium] 40 mg PO DAILY 08/10/15 [History] Finasteride [Proscar] 5 mg PO DAILY 08/10/15 [History] Lisinopril [Zestril] 10 mg PO DAILY 08/10/15 [History] Magnesium Oxide [Mag-Ox] 400 mg PO BID 08/10/15 [History] Metformin [Glucophage] 1,000 mg PO BIDWM 08/10/15 [History] Pravastatin Sodium [Pravachol] 80 mg PO DAILY 08/10/15 [History] Apixaban [Eliquis] 5 mg PO BID 12/21/15 [History] Oxygen 3 l NS CONT 01/30/16 [History] Diltiazem CD (24hr) [Cardizem CD] 360 mg PO DAILY #30 cap.er.24h 10/11/16 [Rx] Metoprolol XL (24 HR) Succ [Toprol Xl] 100 mg PO BID 30 Days 10/11/16 [Rx] Furosemide [Lasix] 40 mg PO DAILY #30 tablet 10/18/16 [Rx] Allergies/Adverse Reactions: Allergies Hydromorphone [From Dilaudid] Allergy (Unknown, Verified 09/29/16 22:45) See Comments PATIENT UNSURE OF REACTION- NONE LISTED WITH [facility] Sulfa (Sulfonamide Antibiotics) Allergy (Unknown, Verified 09/29/16 22:45) See Comments PATIENT UNSURE OF REACTION- NONE LISTED WITH [facility] atorvastatin [From Lipitor] Adverse Reaction (Verified 09/29/16 22:45) Cramping of the Muscles guaifenesin Adverse Reaction (Verified 09/29/16 22:45) Dry Mucus Membranes Procedures/tests Complete & Pending: Procedures Performed prior 72 hours Category Date Time Status ECG 12 lead ECG [ECG] Routine Y 10/17/16 13:38 Completed Laboratory Results - last 24 hr 10/18/16 10/18/16 10/18/16 05:10 05:10 05:10 WBC 9.7 RBC 3.41 L Hgb 10.6 L Hct 31.7 L MCV 93.0 MCH 31.1 MCHC 33.4 RDW 14.1 Plt Count 275 MPV 9.1 L Immature Gran % 1.1 Seg Neutrophils % 74.0 Lymphocytes % 11.0 Monocytes % 8.8 Eosinophils % 4.6 Basophils % 0.5 Neutrophils # 7.2 Lymphocytes # 1.1 Monocytes # 0.9 Eosinophils # 0.5 Basophils # 0.1 Sodium 139 Potassium 3.9 Chloride 101 Carbon Dioxide 27 BUN 20 Creatinine 0.93 Est GFR ( Amer) > 60 Est GFR (Non-Af Amer) > 60 BUN/Creatinine Ratio 22 Glucose 97 POC Glucose Est Mean Plasma Glucose 126 Hemoglobin A1c 6.0 H Calculated Osmolality 291 Calcium 8.8 Triglycerides 105 Cholesterol 106 LDL Cholesterol, Calc 53 VLDL Cholesterol, Calc 21 HDL Cholesterol 32 L Cholesterol/HDL Ratio 3.3 10/18/16 10/18/16 10/18/16 07:50 11:36 16:26 WBC RBC Hgb Hct MCV MCH MCHC RDW Plt Count MPV Immature Gran % Seg Neutrophils % Lymphocytes % Monocytes % Eosinophils % Basophils % Neutrophils # Lymphocytes # Monocytes # Eosinophils # Basophils # Sodium Potassium Chloride Carbon Dioxide BUN Creatinine Est GFR ( Amer) Est GFR (Non-Af Amer) BUN/Creatinine Ratio Glucose POC Glucose 103 H 158 H 115 H Est Mean Plasma Glucose Hemoglobin A1c Calculated Osmolality Calcium Triglycerides Cholesterol LDL Cholesterol, Calc VLDL Cholesterol, Calc HDL Cholesterol Cholesterol/HDL Ratio 10/18/16 20:56 WBC RBC Hgb Hct MCV MCH MCHC RDW Plt Count MPV Immature Gran % Seg Neutrophils % Lymphocytes % Monocytes % Eosinophils % Basophils % Neutrophils # Lymphocytes # Monocytes # Eosinophils # Basophils # Sodium Potassium Chloride Carbon Dioxide BUN Creatinine Est GFR ( Amer) Est GFR (Non-Af Amer) BUN/Creatinine Ratio Glucose POC Glucose 141 H Est Mean Plasma Glucose Hemoglobin A1c Calculated Osmolality Calcium Triglycerides Cholesterol LDL Cholesterol, Calc VLDL Cholesterol, Calc HDL Cholesterol Cholesterol/HDL Ratio Date of admission: 10/11/16 18:19 Primary care physician: Peter Mccallum MD Consults: 10/11/16 18:40 Consult to Occupational Therapy [CONS] Routine Comment: Evaluate, develop and implement POC Consult to Physical Therapy [CONS] Routine Comment: Evaluate, develop and implement POC Consult to Recreational Therapy [CONS] Routine Comment: Evaluate, develop and implement POC Discharging clinician: Peter Mccallum Anticipated date of discharge: 10/19/16 - Patient Status Disposition: Home Health Service Condition: Good Functional capacity at discharge: uses cane/walker Overall status at discharge: patient is progressing back to baseline - Discharge Instructions Follow Up With: Peter Mccallum MD [Primary Care Provider] - - Diet and Activity Activity: ambulate only with your walker, as per physical therapy, wear oxygen at all times Diet: diabetic diet Interval History: This morning he has no symptoms of chest pain, palpitations, irregular heartbeat , dyspnea, abdominal pain. The nursing staff states that he was not willing to get up to try to urinate prior to needing bladder straight catheterization. He states he will urinate on his own at home. No constipation. He feels like he is ready to go home and has been ambulating with his walker. Hospital course: Mr. Bach is a 80 year old male of atrial fib/flutter and episodes of tachycardia and bradycardia was transferred to our facility from [place] where he underwent pacemaker placement to avoid bradycardia and his tachycardia was rate controlled. He was sent to her facility because of deconditioning so we can get PT and OT prior to going home. Medically he has been stable during this stay with heart rate in the 80s typically. He has had no angina or CHF. He has been displayed with PT and OT and they feel that he is safe with his ADLs to be managed at home with home health care as well as home physical therapy in the care of his . His other medical problems including hypertension diabetes and Parkinson's disease were under good control while hospitalized. Please see the diagnoses and discussions. - Time Spent with Patient Total time spent providing and/or coordinating discharge services: - Constitutional Vitals: Temp Pulse Resp BP Pulse Ox 97.9 F 72 16 134/76 94 L 10/18/16 19:00 10/18/16 19:00 10/18/16 19:00 10/18/16 19:00 10/18/16 19:00 General appearance: Present: A&O X 3, pleasant, no acute distress, obese, answers questions appropriately - Respiratory Respiratory exam: Present: CTAB - Cardiovascular Cardiovascular exam: Present: irregular rhythm, +S1, +S2. Absent: systolic murmur, tachycardia - GI/Abdominal GI/Abdominal exam: Present: soft. Absent: mass, tenderness - Extremities Exam Extremities exam: Absent: calf tenderness, pedal edema
[2016-10-19] MEDS: Metoprolol XL (24 HR) Succ 50 MG TAB.ER.24H PO SCH (08:00)
[2016-10-19] MEDS: Furosemide 20 MG TABLET PO SCH (08:00)
[2016-10-19] MEDS: *HR* Metformin 500 MG TABLET PO SCH (08:01)
[2016-10-19] MEDS: *HR* Digoxin 0.125 MG TABLET PO SCH (08:01)
[2016-10-19] MEDS: Finasteride 5 MG TABLET PO SCH (08:01)
[2016-10-19] MEDS: APIXABAN 5 MG TABLET PO SCH (08:01)
[2016-10-19] MEDS: Carbidopa/Levodopa ER 50/200 TABLET PO SCH (08:01)
[2016-10-19] MEDS: Diltiazem CD (24hr) 180 MG CAPSULE PO SCH (08:01)
[2016-10-19] MEDS: Magnesium Oxide 400 MG TABLET PO SCH (08:01)
[2016-10-19 11:54] VITALS: BP 110/67
== END 2016-10-19 15:20 | disposition home health service (06) | DRG 308 ==
LOC: INPGRE 18:19
PROVIDERS: ADMIT Family Medicine; ATTEND Family Medicine

== ENCOUNTER 2017-03-14 04:49 | Observation (INO) ==
--- NOTE | 2017-03-14 05:26 | Emergency Department Note ---
Disposition Clinical Impression: Lactic acidosis Pneumonia Qualifiers: Pneumonia type: due to unspecified organism Laterality: left Lung location: lower lobe of lung Qualified Code(s): J18.1 - Lobar pneumonia, unspecified organism Disposition: Admitted As Inpatient Time of Disposition: 07:24 Altered Mental Status HPI - General Chief Complaint: ED Altered Mental Status Stated Complaint: Mental Status Change Time Seen by Provider: 03/14/17 05:14 Source: family, EMS Limitations: no limitations, altered mental status, physical limitation Nursing Notes Reviewed: Yes Vital Signs Reviewed: Yes - History of Present Illness HPI Narrative: states that patient has had a bad bout with his Parkinson's this week. He has had difficulty getting out of bed and has not been eating or drinking as usual. He did not have a fever or any specific complaints but tonight he was on the commode and could hardly sit upright, showed a hard time getting him up and down to bed and she states that he was not responding to her as usual. She reports his urine was extremely foul and the last time he had these mental status changes he had a urinary tract infection MD complaint: altered mental status Onset (ago): day(s) Timing confirmed by: spouse Pain Scale: 0 Consistency of Symptoms: getting worse Context: history of similar presentation, other (Parkinsons) Associated symptoms: Reports: other (denies pain) - Related Data Home Medications Medication Instructions Recorded Confirmed Carbidopa/Levodopa ER 50/200 1 tab PO BID 08/10/15 03/14/17 [Sinemet ER 50-200 Tab] Esomeprazole Magnesium [Nexium] 40 mg PO DAILY 08/10/15 03/14/17 Finasteride [Proscar] 5 mg PO DAILY 08/10/15 03/14/17 Magnesium Oxide [Mag-Ox] 400 mg PO BID 08/10/15 03/14/17 Metformin [Glucophage] 1,000 mg PO BIDWM 08/10/15 03/14/17 Pravastatin Sodium [Pravachol] 80 mg PO DAILY 08/10/15 03/14/17 Oxygen 3 l NS CONT 01/30/16 03/14/17 Digoxin [Lanoxin] 125 mcg PO DAILY 11/22/16 03/14/17 Warfarin [Coumadin] 2 mg PO 1800 12/27/16 03/14/17 Metoprolol XL (24 HR) Succ [Toprol 100 mg PO DAILY 02/11/17 03/14/17 Xl] Previous Rx's Medication Instructions Recorded Diltiazem CD (24hr) [Cardizem CD] 360 mg PO DAILY #30 cap.er.24h 10/11/16 Furosemide [Lasix] 20 mg PO DAILY #30 tablet 11/25/16 Allergies Allergy/AdvReac Type Severity Reaction Status Date / Time Hydromorphone [From Dilaudid] Allergy Unknown See Verified 03/14/17 04:58 Comments Sulfa (Sulfonamide Allergy Unknown See Verified 03/14/17 04:58 Antibiotics) Comments atorvastatin [From Lipitor] AdvReac Cramping Verified 03/14/17 04:58 of the Muscles guaifenesin AdvReac Dry Mucus Verified 03/14/17 04:58 Membranes All systems ED: reviewed and negative except as stated. Endocrine: Reports: fatigue Past Medical History - Past Medical History Medical history: Reports: arthritis, atrial fibrillation, diabetes, GERD, GI bleed, hyperlipidemia, hypertension, SVT, TIA, other Surgical history: Reports: other, pacemaker Psychiatric history: Reports: no psych history - Social History Smoking Status: Never smoker Smokeless Tobacco Status: No Alcohol use: Reports: none Drug use: Reports: none Physical Exam Constitutional: Patient is restful but has mask facies and stares straight ahead. states that this is baseline. He is not usually very verbal and has not been for years. Skin color is pale Appears well hydrated, body habitus elderly and frail . Non toxic appearing. Head: Normocephalic and atraumatic. External ear exam normal Nose: Nose normal. Mouth/Throat: Uvula is midline, oropharynx is clear and moist and mucous membranes are normal. Eyes: Conjunctivae nl, extraocular motions and lids are normal. Pupils are equal , round, and reactive to light. Neck: Normal range of motion and phonation normal. Neck supple. Cardiovascular: Normal rate, regular rhythm, normal heart sounds. Pulmonary/Chest: No Respiratory distress. Respiratory Effort normal and breath sounds clear. Abdominal: Soft. Normal appearance and bowel sounds are normal. no tenderness, no masses, no guarding, no rebound Musculoskeletal: Good distal pulses. Soft compartments. Brisk cap refill. Extremities: Normal range of motion.Intact peripheral pulses. No Edema. Extremity skin color nl, no calf tenderness or palpable cords. Neurological: Patient is alert and oriented without evidence of obvious motor deficits In his mouth and extrude his tongue, moves both legs away when I do [place] both of which are downgoing cannot really cooperate for strand and binder controller strength or Romberg testing Skin: Skin is warm, dry and intact. color is normal, turgor is good, cap refill is quick Psychiatric: Patient has depressed mood and flat affect. Patient is nonverbal for me but does shake his head and not his head appropriately to questioning - General Limitations: altered mental status, physical limitation General appearance: alert, in no apparent distress Course - Reevaluation(s) Reevaluation #1: Radiograph of difficulty passing Cast catheter. Finally daily catheter was passed. Urine is dark and foul-smelling. Patient has possible pneumonia at the left base. Lactate is significantly high. Antibiotics ordered. Fluids for sepsis protocol. Patient will require hospitalization where ICUs available Time: 07:08 Reevaluation #2: there are no beds availabile at [facility]. he is DNR-CC. DISC CASE W/ DR Alcantara WHO agrees pt can be admitted here. we discc antibiotic choice.disc INR level and anticoagulation. He will see patient in a few hours and would appreciate me placing admission orders as a courtesy he agrees w/ fluids adminiistered. Time: 07:20 Vital Signs Temperature 97.2 F L 03/14/17 04:49 Pulse Rate 82 03/14/17 04:49 Respiratory Rate 16 03/14/17 04:49 Blood Pressure 133/74 03/14/17 04:49 O2 Sat by Pulse Oximetry 99 03/14/17 04:49 Temperature 97.2 F L 03/14/17 04:49 Pulse Rate 73 03/14/17 06:52 Respiratory Rate 16 03/14/17 06:52 Blood Pressure 128/81 03/14/17 06:52 O2 Sat by Pulse Oximetry 100 03/14/17 06:52 Oxygen Delivery Oxygen Delivery Nasal Cannula Altered Mental Status - Differential Diagnosis Likely: altered mental status, delirium, dementia, hyponatremia, sepsis - Medical Records Medical records reviewed: Yes I reviewed the patient's medical records. recent admit for elev trop (has chronic trop elevation) and LUQ pain w/ nl ct - Lab Data Lab results reviewed: Yes I reviewed the patient's lab results. Result diagrams: 03/14/17 05:20 03/14/17 05:20 Lab Results 03/14/17 03/14/17 03/14/17 Range/Units 05:20 05:20 05:20 WBC 12.1 H (4.3-11.1) K/mcL RBC 3.92 L (4.19-5.50) M/mcL Hgb 12.6 L (12.9-16.9) g/dL Hct 35.7 L (37.5-50.1) % MCV 91.1 (83.0-100.0) fL MCH 32.1 (28.0-33.3) pg MCHC 35.3 (31.6-35.5) g/dL RDW 13.2 (11.5-14.5) % Plt Count 304 (140-400) K/mcL MPV 9.2 L (9.4-12.4) fL Immature Gran % 0.5 (0-4) % Seg Neutrophils % 84.3 % Lymphocytes % 7.4 % Monocytes % 6.2 % Eosinophils % 1.4 % Basophils % 0.2 % Neutrophils # 10.2 H (1.6-8.9) K/mcL Lymphocytes # 0.9 (0.6-4.6) K/mcL Monocytes # 0.8 (0.0-1.3) K/mcL Eosinophils # 0.2 (0.0-0.6) K/mcL Basophils # 0.0 (0.0-0.2) K/mcL PT 25.7 H (9.4-12.1) Seconds INR 2.3 APTT 36.7 H (26.0-36.0) Seconds VBG Lactic Acid (0.5-2.2) mmol/L Sodium 137 (136-145) mEq/L Potassium 3.8 (3.5-4.5) mEq/L Chloride 97 L (98-109) mEq/L Carbon Dioxide 25 (19-29) mEq/L BUN 15 (8-26) mg/dL Creatinine 0.81 (0.72-1.25) mg/dL Est GFR ( Amer) > 60 (> 60) Est GFR (Non-Af Amer) > 60 (> 60) BUN/Creatinine Ratio 19 (6-26) Glucose 140 H (70-99) mg/dL Calculated Osmolality 287 (280-300) Calcium 9.3 (8.6-10.8) mg/dL Total Bilirubin 0.6 (0.2-1.2) mg/dL Direct Bilirubin 0.3 (0.0-0.5) mg/dL Indirect Bilirubin 0.3 (0.0-1.2) mg/dL AST 10 (5-34) Units/L ALT < 6 (0-55) Units/L Alkaline Phosphatase 45 (38-126) Units/L Troponin I (0-0.03) ng/mL Serum Total Protein 6.4 (6.0-8.3) g/dL Albumin 3.7 (3.5-5.0) g/dL Globulin 2.7 (2.4-3.5) g/dL Albumin/Globulin Ratio 1.4 (1.1-2.2) Urine Color (Yellow) Urine Clarity (Clear) Urine pH (5.0-8.0) pH Units Ur Specific [place] (1.010-1.025) Urine Protein (Neg-Trace) mg/dL Urine Glucose (UA) (Normal) mg/dL Urine Ketones (Negative) mg/dL Urine Blood (Negative) Urine Nitrite (Negative) Urine Bilirubin (Negative) Urine Urobilinogen (Normal) mg/dL Ur Leukocyte Esterase (Negative) Urine Microscopic WBC (0-3) per hpf Ur Squamous Epith Cells (None-Few) per lpf Urine Bacteria (None-Few) per hpf Ur Culture Indicated? (NO) Digoxin (0.8-2.0) ng/mL Ethyl Alcohol < 10 (0-10) mg/dL 03/14/17 03/14/17 03/14/17 Range/Units 05:20 05:20 05:20 WBC (4.3-11.1) K/mcL RBC (4.19-5.50) M/mcL Hgb (12.9-16.9) g/dL Hct (37.5-50.1) % MCV (83.0-100.0) fL MCH (28.0-33.3) pg MCHC (31.6-35.5) g/dL RDW (11.5-14.5) % Plt Count (140-400) K/mcL MPV (9.4-12.4) fL Immature Gran % (0-4) % Seg Neutrophils % % Lymphocytes % % Monocytes % % Eosinophils % % Basophils % % Neutrophils # (1.6-8.9) K/mcL Lymphocytes # (0.6-4.6) K/mcL Monocytes # (0.0-1.3) K/mcL Eosinophils # (0.0-0.6) K/mcL Basophils # (0.0-0.2) K/mcL PT (9.4-12.1) Seconds INR APTT (26.0-36.0) Seconds VBG Lactic Acid 4.5 H* (0.5-2.2) mmol/L Sodium (136-145) mEq/L Potassium (3.5-4.5) mEq/L Chloride (98-109) mEq/L Carbon Dioxide (19-29) mEq/L BUN (8-26) mg/dL Creatinine (0.72-1.25) mg/dL Est GFR ( Amer) (> 60) Est GFR (Non-Af Amer) (> 60) BUN/Creatinine Ratio (6-26) Glucose (70-99) mg/dL Calculated Osmolality (280-300) Calcium (8.6-10.8) mg/dL Total Bilirubin (0.2-1.2) mg/dL Direct Bilirubin (0.0-0.5) mg/dL Indirect Bilirubin (0.0-1.2) mg/dL AST (5-34) Units/L ALT (0-55) Units/L Alkaline Phosphatase (38-126) Units/L Troponin I 0.06 H* (0-0.03) ng/mL Serum Total Protein (6.0-8.3) g/dL Albumin (3.5-5.0) g/dL Globulin (2.4-3.5) g/dL Albumin/Globulin Ratio (1.1-2.2) Urine Color (Yellow) Urine Clarity (Clear) Urine pH (5.0-8.0) pH Units Ur Specific [place] (1.010-1.025) Urine Protein (Neg-Trace) mg/dL Urine Glucose (UA) (Normal) mg/dL Urine Ketones (Negative) mg/dL Urine Blood (Negative) Urine Nitrite (Negative) Urine Bilirubin (Negative) Urine Urobilinogen (Normal) mg/dL Ur Leukocyte Esterase (Negative) Urine Microscopic WBC (0-3) per hpf Ur Squamous Epith Cells (None-Few) per lpf Urine Bacteria (None-Few) per hpf Ur Culture Indicated? (NO) Digoxin < 0.3 L (0.8-2.0) ng/mL Ethyl Alcohol (0-10) mg/dL 03/14/17 Range/Units 06:50 WBC (4.3-11.1) K/mcL RBC (4.19-5.50) M/mcL Hgb (12.9-16.9) g/dL Hct (37.5-50.1) % MCV (83.0-100.0) fL MCH (28.0-33.3) pg MCHC (31.6-35.5) g/dL RDW (11.5-14.5) % Plt Count (140-400) K/mcL MPV (9.4-12.4) fL Immature Gran % (0-4) % Seg Neutrophils % % Lymphocytes % % Monocytes % % Eosinophils % % Basophils % % Neutrophils # (1.6-8.9) K/mcL Lymphocytes # (0.6-4.6) K/mcL Monocytes # (0.0-1.3) K/mcL Eosinophils # (0.0-0.6) K/mcL Basophils # (0.0-0.2) K/mcL PT (9.4-12.1) Seconds INR APTT (26.0-36.0) Seconds VBG Lactic Acid (0.5-2.2) mmol/L Sodium (136-145) mEq/L Potassium (3.5-4.5) mEq/L Chloride (98-109) mEq/L Carbon Dioxide (19-29) mEq/L BUN (8-26) mg/dL Creatinine (0.72-1.25) mg/dL Est GFR ( Amer) (> 60) Est GFR (Non-Af Amer) (> 60) BUN/Creatinine Ratio (6-26) Glucose (70-99) mg/dL Calculated Osmolality (280-300) Calcium (8.6-10.8) mg/dL Total Bilirubin (0.2-1.2) mg/dL Direct Bilirubin (0.0-0.5) mg/dL Indirect Bilirubin (0.0-1.2) mg/dL AST (5-34) Units/L ALT (0-55) Units/L Alkaline Phosphatase (38-126) Units/L Troponin I (0-0.03) ng/mL Serum Total Protein (6.0-8.3) g/dL Albumin (3.5-5.0) g/dL Globulin (2.4-3.5) g/dL Albumin/Globulin Ratio (1.1-2.2) Urine Color Yellow (Yellow) Urine Clarity Clear (Clear) Urine pH 7.0 (5.0-8.0) pH Units Ur Specific [place] 1.015 (1.010-1.025) Urine Protein Trace (Neg-Trace) mg/dL Urine Glucose (UA) Normal (Normal) mg/dL Urine Ketones Trace H (Negative) mg/dL Urine Blood Negative (Negative) Urine Nitrite Negative (Negative) Urine Bilirubin Negative (Negative) Urine Urobilinogen Normal (Normal) mg/dL Ur Leukocyte Esterase Trace H (Negative) Urine Microscopic WBC 0-3 (0-3) per hpf Ur Squamous Epith Cells Few (None-Few) per lpf Urine Bacteria Moderate H (None-Few) per hpf Ur Culture Indicated? YES A (NO) Digoxin (0.8-2.0) ng/mL Ethyl Alcohol (0-10) mg/dL - Radiology Data Radiology results reviewed: Yes I reviewed the patient's radiology results. CT scan of the brain reveals no evidence of acute changes. Some occult remote lacunar abnormal findings of possible ischemia Chest x-ray reveals impression elevation left hemidiaphragm with patchy left opacity opacity likely atelectasis - EKG Data EKG attestation: Yes I reviewed and interpreted this EKG. EKG results narrative: Paced rhythm. Occasional intrinsic beats with narrow complex and T-wave inversion all leads equally. No evidence of acute ischemia TPA Checklist - LKW: 3-4.5 hrs Add. Warnings/Precautions Patient/family understanding: The patient/family members have been counseled and understood the risk, benefit , and alternatives of treatment.
[2017-03-14] MEDS: 0.9 % Sodium Chloride 1,000 ML IVC ONE ×2 (05:47→08:15)
[2017-03-14 05:51] LABS: Basophils % 0.2 %; Eosinophils # 0.2 K/mcL (0.0-0.6); Eosinophils % 1.4 %; Hematocrit 35.7 % (37.5-50.1); Hemoglobin 12.6 g/dL (12.9-16.9); INR 2.3; Immature Granulocytes % 0.5 % (0-4); Lymphocytes # 0.9 K/mcL (0.6-4.6); Lymphocytes % 7.4 %; Mean Corpuscular HGB Conc 35.3 g/dL (31.6-35.5); Mean Corpuscular Hemoglobin 32.1 pg (28.0-33.3); Mean Corpuscular Volume 91.1 fL (83.0-100.0); Mean Platelet Volume 9.2 fL (9.4-12.4); Monocytes # 0.8 K/mcL (0.0-1.3); Monocytes % 6.2 %; Neutrophils # 10.2 K/mcL (1.6-8.9); Platelet Count 304 K/mcL (140-400); Prothrombin Time 25.7 Seconds (9.4-12.1); Red Blood Count 3.92 M/mcL (4.19-5.50); Red Cell Distribution Width 13.2 % (11.5-14.5); Segmented Neutrophils % 84.3 %
[2017-03-14 05:54] LABS: Activated Partial Thrombo Time 36.7 Seconds (26.0-36.0)
[2017-03-14 06:06] LABS: Alanine Aminotransferase < 6 Units/L (0-55); Albumin 3.7 g/dL (3.5-5.0); Albumin/Globulin Ratio 1.4 (1.1-2.2); Alkaline Phosphatase 45 Units/L (38-126); Aspartate Amino Transferase 10 Units/L (5-34); BUN/Creatinine Ratio 19 (6-26); Bilirubin,Direct 0.3 mg/dL (0.0-0.5); Bilirubin,Indirect 0.3 mg/dL (0.0-1.2); Bilirubin,Total 0.6 mg/dL (0.2-1.2); Blood Urea Nitrogen 15 mg/dL (8-26); Calcium 9.3 mg/dL (8.6-10.8); Carbon Dioxide 25 mEq/L (19-29); Chloride 97 mEq/L (98-109); Ethanol < 10 mg/dL (0-10); Globulin 2.7 g/dL (2.4-3.5); Glucose 140 mg/dL (70-99); Osmolality,Calculated 287 (280-300); Potassium 3.8 mEq/L (3.5-4.5); Sodium 137 mEq/L (136-145); Total Protein 6.4 g/dL (6.0-8.3); eGFR For African Americans > 60 (> 60); eGFR For Non-African Americans > 60 (> 60)
[2017-03-14] MEDS ORDERED: 0.9 % Sodium Chloride 1,000 ML IVC ONE (06:56)
[2017-03-14 07:01] LABS: Bilirubin,Urine Negative (Negative); Blood,Urine Negative (Negative); Clarity,Urine Clear (Clear); Color,Urine Yellow (Yellow); Glucose,Urine (UA) Normal (Normal); Ketones,Urine Trace mg/dL (Negative); Leukocyte Esterase,Urine Trace (Negative); Nitrite,Urine Negative (Negative); Protein,Urine Trace mg/dL (Neg-Trace); Specific Gravity,Urine 1.015 (1.010-1.025); Urobilinogen,Urine Normal (Normal)
[2017-03-14 07:09] LABS: Bacteria,Urine Moderate per hpf (None-Few); Squamous Epithelial Cell,Urine Few per lpf (None-Few); WBC,Urine 0-3 per hpf (0-3)
[2017-03-14] MEDS ORDERED: Ondansetron 4 MG/2 ML VIAL IVP PRN (09:11)
[2017-03-14] MEDS ORDERED: Acetaminophen 325 MG TABLET PO PRN (09:11)
[2017-03-14] MEDS ORDERED: Naloxone 0.4 MG/ML INJ IVP PRN (09:11)
[2017-03-14] MEDS: Magnesium Oxide 400 MG TABLET PO SCH ×2 (09:55→20:10)
[2017-03-14] MEDS: Diltiazem CD (24hr) 180 MG CAPSULE PO SCH (09:55)
[2017-03-14] MEDS: *HR* Digoxin 0.125 MG TABLET PO SCH (09:56)
[2017-03-14] MEDS: Finasteride 5 MG TABLET PO SCH (09:56)
[2017-03-14] MEDS: 0.9 % Sodium Chloride 1,000 ML IVC SCH ×3 (09:56→23:10)
[2017-03-14] MEDS: Carbidopa/Levodopa ER 50/200 TABLET PO SCH ×2 (09:56→20:10)
[2017-03-14] MEDS: Metoprolol XL (24 HR) Succ 50 MG TAB.ER.24H PO SCH (09:56)
[2017-03-14] MEDS: *HR* Metformin 500 MG TABLET PO SCH ×2 (09:56→17:21)
--- NOTE | 2017-03-14 11:31 | Internal Med History&Physical ---
Date of Encounter: 03/15/17 Time of Encounter: 11:25 Assessment and Plan (1) Mental status change Current visit: Yes Status: Acute Patient had acute mental status changes, general decline over the past several days, poor by mouth intake, less spontaneous speech, he is requiring 2 people to even sit him up in bed. I doubt that he has had an acute CVA/TIA. I suspect it may be worsening of his Parkinson's. I doubt we have a quick turnaround with this. It would be too difficult to manage this at home without 24-hour prison care. Also, his CODE STATUS is DNR CCA with no intubation, CPR or defibrillation, catheterization, surgery etc. Qualifiers: Altered mental status type: unspecified Qualified Code(s): R41.82 - Altered mental status, unspecified (2) Generalized weakness Current visit: Yes Status: Acute His generalized weakness which is worsening. The last time he was in the office he was ambulatory with a walker. Now he cannot be independent getting out of a chair, cannot sit up in bed by himself, etc. This may be worsening of his Parkinson's. He could have underlying sepsis though unlikely. We do not have a specific focus of infection at this time. He will have IV fluids, IV antibiotics, supportive care during the workup. It is unlikely he will be able to be at home safely and I recommended 24-hour prison care for the next few weeks if not longer. (3) Hypertension Current visit: No Status: Chronic He has a history of long-standing hypertension, now controlled. 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 Now with a pacemaker he is on beta ab and calcium channel ab to control his rate. He still has atrial fibrillation and is anticoagulated. (5) Atrial fibrillation and flutter Current visit: No Status: Chronic Continues with atrial fibrillation but is now rate controlled and has a pacemaker to avoid bradycardia. He is anticoagulated with Coumadin. (6) Troponin level elevated Current visit: No Status: Acute In the ER his troponin was elevated at 0.6 and on repeat is 0.4. He has a "chronically elevated troponin", no chest pain, angina or CHF findings. This is unlikely from cardiac source. 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 He is not a candidate for catheterization either. (7) Diabetes type 2, controlled Current visit: No Status: Chronic He has chronic diabetes but his sugars are relatively good control with his last glycohemoglobin less than 7%. We will monitor with Accu-Cheks. Qualifiers: Diabetes mellitus complication status: without complication Diabetes mellitus snf insulin use: without terminal operator use Qualified Code(s): E11.9 - Type 2 diabetes mellitus without complications (8) Chronic anticoagulation Current visit: No Status: Chronic Chronic anticoagulation because of atrial fibrillation. He is therapeutic on his warfarin (9) Parkinson disease Current visit: No Status: Chronic He has chronic Parkinson's disease. Occasionally he will have tremors. In general he has decreased facial expression, slowness of movement, paucity of spontaneous movement, dementia-like at times. He has been followed by Dr. Thompson the neurologist and has had medications adjusted. The current regimen of medication seems to be the best so far. (10) Lactic acidosis Current visit: Yes Status: Acute Significant elevated lactate. Clinically he is not septic. We will repeat after IV fluids. He is DNR CCA and not to have intubation, CPR, aggressive intervention. Internal Medicine - H&P: HPI Chief complaint: I lost control of my balance Admitted From: Emergency Dept Plans for Post Hospital Care: Home History of present illness: Mr. Bach is a 81 year old male with known history of atrial fibrillation and pacemaker, Parkinson's, chronically elevated troponin, diabetes, hypertension, anticoagulated with Coumadin and multiple other medical problems. He was recently hospitalized at [place] with elevated troponin and abdominal pain. His workup there was nonfocal, his symptoms improved and he was sent home. I saw many office in 02/22/17 at that time he was seemingly back to his baseline. He is cared for by his as he needs assistance with ambulation, getting up and down, ADLs, preparing meals etc. Last one he was at the hospital, he said "I have lost my balance". He states he had not been able to get out of a chair or bed. He denies any chest pain, dyspnea, abdominal pain, unilateral deficit, fever or chills etc. He is a poor historian, slow to respond and his is not present to help with the history. He was reported to me by the ER physician that the patient has not been eating the past few days, has lost weight, less responsive, was unable to be getting out of bed or off the couch etc. The ER workup included elevated lactate of 4, minimally elevated white blood cell count, chest ray with atelectasis and/or infiltrate. Having a significant decline he was admitted to an observation bed for further evaluation and treatment. Past Med Surg Social Fam HX - Past Medical History Medical history: arthritis, atrial fibrillation, diabetes (His last glycohemoglobin was under 7%), GERD, GI bleed, hyperlipidemia, hypertension, SVT , TIA, other (Parkinson's disease) Psychiatric history: no psych history - Past Surgical History Surgical History: other, pacemaker - Social History Smoking Status: Never smoker Smokeless Tobacco Status: No Alcohol use: none Drug use: none Current living situation: With Family (His manages all of his care, help with ambulation, cooking, bathing etc.) Activity Level: Uses cane/walker, Bed bound (Recently he has not been getting out of bed or chair much), Mostly sedentary - Family History Father Living Status: Hx Family GI Disorders: Yes (History of hepatitis) Mother Living Status: Hx Family Cardiac Disorders: Yes (Unknown type of heart disease) Hx Family Respiratory Disorders: Yes (Asthma) Hx Family Cancer: Yes (Unknown type cancer) Internal Medicine - H&P: Meds Carbidopa/Levodopa ER 50/200 [Sinemet ER 50-200 Tab] 1 tab PO BID 08/10/15 [ History] Esomeprazole Magnesium [Nexium] 40 mg PO DAILY 08/10/15 [History] Finasteride [Proscar] 5 mg PO DAILY 08/10/15 [History] Magnesium Oxide [Mag-Ox] 400 mg PO BID 08/10/15 [History] Metformin [Glucophage] 1,000 mg PO BIDWM 08/10/15 [History] Pravastatin Sodium [Pravachol] 80 mg PO DAILY 08/10/15 [History] Oxygen 3 l NS CONT 01/30/16 [History] Diltiazem CD (24hr) [Cardizem CD] 360 mg PO DAILY #30 cap.er.24h 10/11/16 [Rx] Digoxin [Lanoxin] 125 mcg PO DAILY 11/22/16 [History] Furosemide [Lasix] 20 mg PO DAILY #30 tablet 11/25/16 [Rx] Warfarin [Coumadin] 2 mg PO 1800 12/27/16 [History] Metoprolol XL (24 HR) Succ [Toprol Xl] 100 mg PO DAILY 02/11/17 [History] Allergies Hydromorphone [From Dilaudid] Allergy (Unknown, Verified 03/14/17 04:58) See Comments PATIENT UNSURE OF REACTION- NONE LISTED WITH [facility]W Sulfa (Sulfonamide Antibiotics) Allergy (Unknown, Verified 03/14/17 04:58) See Comments PATIENT UNSURE OF REACTION- NONE LISTED WITH ECW atorvastatin [From Lipitor] Adverse Reaction (Verified 03/14/17 04:58) Cramping of the Muscles guaifenesin Adverse Reaction (Verified 03/14/17 04:58) Dry Mucus Membranes - Constitutional Constitutional: anorexia, fatigue, lethargy, malaise, weight loss (Patient was 140 pounds in the office 2 weeks ago), no night sweats - EENT Eyes: no blurry vision, no diplopia, no loss of vision Ears: no ear discharge, no ear pain Nose, mouth and throat: no dry mouth, no mouth pain, no neck mass, no neck pain , no sore throat - Cardiovascular Cardiovascular ROS IM: no chest pain, no dyspnea, no dyspnea on exertion, no edema, no irregular heart rhythm, no palpitations, no syncope - Respiratory Respiratory: no cough, no dyspnea, no hemoptysis, no chest congestion - Gastrointestinal Gastrointestinal: no abdominal pain, no change in bowel habits, no constipation , no diarrhea, no hematemesis, no vomiting - Genitourinary Genitourinary ROS male: other (Very foul-smelling urine, concentrated), no dysuria, no flank pain - Musculoskeletal Musculoskeletal ROS IM: muscle weakness (He has Parkinson's and difficulty moving as in history of present illness. His states it is progressively worsening ), no back pain - Integumentary Integumentary IM: no erythema, no new lesions, no rash, no jaundice - Neurological Neurological ROS: disequilibrium, dizziness, lack of coordination, weakness ( His states he has generalized weakness, she cannot get him out of bed or chair now at home without much struggle) - Constitutional Vitals: Temp Pulse Resp BP Pulse Ox 97.8 F 61 20 126/73 90 03/14/17 09:26 03/14/17 09:26 03/14/17 09:26 03/14/17 09:26 03/14/17 09:26 General appearance: Present: cachectic, disheveled, A&O X 2, loss of weight. Absent: answers questions appropriately - ENT ENT exam: Present: mucous membranes moist, TM's normal bilaterally - Neck Neck exam general surgery: Absent: tenderness, nuchal rigidity, thyromegaly - Respiratory Respiratory exam: Present: CTAB. Absent: rales, respiratory distress, rhonchi, stridor - Cardiovascular Cardiovascular exam: Present: irregular rhythm, +S1, +S2. Absent: systolic murmur, tachycardia - GI/Abdominal GI/Abdominal exam: Present: soft, no peritoneal signs. Absent: guarding, hepatomegaly, tenderness - Extremities Exam Extremities exam: Absent: calf tenderness, joint swelling, mottling, pedal edema , tenderness - Neurological Exam Additional comments: He is very slow to speak and respond. He has a masklike facies. He is able to move all extremities at least a limited fashion while in bed. He is too weak to sit up by himself and takes 2 people to sit him up in bed. He is currently unable to stand. Does not appear to have unilateral or focal new deficit. No resting tremor. He cannot recall what happened in the ER, but he did recall he saw a female physician. He is fairly little spontaneous speech. No slurred speech. - Skin Skin exam: Present: intact Internal Med - H&P Results - Labs CBC & Chem 7: 03/15/17 05:15 03/15/17 05:15 Labs: Cardiac Enzymes 03/14/17 Range/Units 10:35 Troponin I 0.04 H* (0-0.03) ng/mL White blood cell count is elevated. Troponin is elevated, repeat is improved. Blood sugars mildly elevated. His last glycohemoglobin though was less than 7%. - Diagnostic Studies Chest x-ray Additional comments: Chest x-ray was read as atelectatic changes in the left base. I do not see any acute infiltrate or effusion. - VTE Reasons for not Prescribing Prophylaxis: Not indicated-Anticoagulated or INR therapeutic
--- NOTE | 2017-03-14 12:34 | Electrocardiograph Report ---
[place] [id number] Test Date: 2017-03-14 Pat Name: Cole Bach Department: 2000 Room: 112 Gender: M Case Management Coordinator: PARAM : 1935 Requested By: Sarahy Edward Order Number: [id number] Reading MD: Santiago De La Garza MD Measurements Intervals [place] Rate: 66 P: [place]: 0 QRS: 59 QRSD: 89 T: 265 QT: 335 QTc: 349 Interpretive Statements UNCERTAIN UNDERLYING IRREGULAR RHYTHM WITH DEMAND ELECTRONIC VENTRICULAR PACEMAKER Electronically Signed On 03-14-2017 12:32:11 EDT by Santiago De La Garza MD
[2017-03-14] MEDS ORDERED: *HR* Warfarin 2 MG TABLET PO ONE (17:05)
[2017-03-14] MEDS ORDERED: *HR* Warfarin 5 MG TABLET PO SCH (18:00)
[2017-03-15 05:24] LABS: Basophils % 0.2 %; Eosinophils # 0.2 K/mcL (0.0-0.6); Hematocrit 33.4 % (37.5-50.1); Hemoglobin 11.7 g/dL (12.9-16.9); Immature Granulocytes % 0.4 % (0-4); Lymphocytes # 0.9 K/mcL (0.6-4.6); Lymphocytes % 8.1 %; Mean Corpuscular Hemoglobin 32.1 pg (28.0-33.3); Mean Corpuscular Volume 91.5 fL (83.0-100.0); Mean Platelet Volume 8.9 fL (9.4-12.4); Monocytes # 0.8 K/mcL (0.0-1.3); Monocytes % 7.4 %; Platelet Count 268 K/mcL (140-400); Red Blood Count 3.65 M/mcL (4.19-5.50); Red Cell Distribution Width 13.4 % (11.5-14.5); Segmented Neutrophils % 81.9 %
[2017-03-15 05:29] LABS: INR 2.2; Prothrombin Time 24.4 Seconds (9.4-12.1)
[2017-03-15 05:39] LABS: BUN/Creatinine Ratio 15 (6-26); Blood Urea Nitrogen 9 mg/dL (8-26); Calcium 8.3 mg/dL (8.6-10.8); Carbon Dioxide 26 mEq/L (19-29); Chloride 101 mEq/L (98-109); Glucose 106 mg/dL (70-99); Osmolality,Calculated 281 (280-300); Potassium 3.7 mEq/L (3.5-4.5); Sodium 136 mEq/L (136-145); eGFR For African Americans > 60 (> 60); eGFR For Non-African Americans > 60 (> 60)
[2017-03-15 05:46] LABS: Neutrophils # 9.3 K/mcL (1.6-8.9)
--- NOTE | 2017-03-15 06:55 | Discharge Summary ---
Date of Encounter: 03/15/17 Time of Encounter: 06:46 - Discharge Diagnosis (1) Failure to thrive in adult Priority: Primary Status: Acute Comments: Patient was admitted with mental status changes, general decline in ADLs, very poor appetite, very concentrated foul-smelling urine. His takes care of him 24 hours per day, and patient had declined to the point where she was not able to do so. His workup in the ER showed mildly elevated white blood cell count, but no obvious source of infection. Chest x-ray showed atelectasis. Urine showed some bacteria but very few WBCs. Cultures were obtained. He was given IV fluids overnight. He has perked up somewhat and he ate 30% of his supper last night. He has no cardiopulmonary symptoms. He denies any localizing or unilateral weakness. He is having no GI symptoms. He is still requiring 2 people to get him to the bedside commode. He has a history of Parkinson's disease, and he sees the neurologist. He has never done extremely well with the medication. On occasion he will have tremors particular of his leg. However everything else is very slow regarding his speech, regarding his movements etc. It appears that he is failing to thrive and I am not sure he is going to get back to a baseline where he can be back in the home. At this time he needs long term care, therapies, 24 hour supervision, assistance with his ADLs etc. He will be transferred to [facility] today. (2) Mental status change Priority: Secondary Status: Acute Comments: He has improved somewhat. He still remains very quiet which is his usual. He does seem to respond appropriately to simple questions this morning. He has no complaints. He ate 30% of his supper last night. Doubt that he has had a CVA/ TIA or has infectious etiology. Likely it is from ongoing failure to thrive and had gotten dehydrated. He has improved. Qualifiers: Altered mental status type: unspecified Qualified Code(s): R41.82 - Altered mental status, unspecified (3) Generalized weakness Priority: Secondary Status: Acute Comments: He is generalized weakness. Still requires 2 people to get him to sit up and get to the bedside commode. He does not have focal unilateral deficit. He cannot maintain ADLs and needs ongoing F skilled care and therapies. (4) Hypertension Priority: Secondary Status: Chronic Comments: His blood pressures been under relatively good control. We will continue to monitor. No change in his medications. Most of his medications are for rate control of his atrial fibrillation. Qualifiers: Hypertension type: essential hypertension Qualified Code(s): I10 - Essential (primary) hypertension (5) Pacemaker Priority: Secondary Status: Chronic Comments: He has a history of tachybrady syndrome, it was difficult to control his heart rate without going too low and now he has a pacemaker. His EKG showed pacer spikes rhythm. (6) Atrial fibrillation and flutter Priority: Secondary Status: Chronic Comments: Patient has a history of chronic atrial fibrillation which is now rate controlled with calcium channel ab and beta ab and has a pacemaker to avoid bradycardia. He is anticoagulated with Coumadin. He is therapeutic with INR of 2.2 today. (7) Troponin level elevated Priority: Secondary Status: Chronic Comments: He chronically has elevated troponin in the 0.04-0.06 range every time he comes to the emergency room. He has been evaluated by a sky diver. He has had no chest pain or angina or CHF. No acute EKG changes. He is a DNR CCA and would not be a candidate for cardiac catheterization or more aggressive workup any further. (8) Diabetes type 2, controlled Priority: Secondary Status: Chronic Comments: He has diabetes mellitus. His sugars up and under control. No hypoglycemia. His last glycohemoglobin was 6% as tested 10/2016. Qualifiers: Diabetes mellitus complication status: without complication Diabetes mellitus local intermodal truck driver insulin use: without local intermodal truck driver use Qualified Code(s): E11.9 - Type 2 diabetes mellitus without complications (9) Chronic anticoagulation Priority: Secondary Status: Chronic Comments: He is chronically anticoagulated with warfarin. At home typical doses are 1 mg alternating with 2 mg. Currently he is getting 2 mg. He is anticoagulated because of a history of atrial fibrillation. (10) Parkinson disease Priority: Secondary Status: Chronic Comments: He continues with his Parkinson's disease. He follows up with Dr. Thompson. He still has slowed movements, paucity of spontaneous movements, slowed speech etc. On occasion he will have a tremor particularly of his leg. He has difficulty with ambulation. He has difficulties with balance. Right now it takes 2 people to sit him up to the bedside commode. (11) Lactic acidosis Priority: Secondary Status: Resolved Comments: On admission he had lactic acidosis with lactate level of 4. On repeat was 2. He has no obvious signs of infection. Fluids were given and his labs improved. Clinically he did not have signs of septicemia, hypotension and cultures have been negative. He does take metformin. His renal function has been good. We will need to watch for recurrence. I suspect it was because he was dry. - Discharge Medications Home Medications: Carbidopa/Levodopa ER 50/200 [Sinemet ER 50-200 Tab] 1 tab PO BID 08/10/15 [ History] Esomeprazole Magnesium [Nexium] 40 mg PO DAILY 08/10/15 [History] Finasteride [Proscar] 5 mg PO DAILY 08/10/15 [History] Magnesium Oxide [Mag-Ox] 400 mg PO BID 08/10/15 [History] Metformin [Glucophage] 1,000 mg PO BIDWM 08/10/15 [History] Pravastatin Sodium [Pravachol] 80 mg PO DAILY 08/10/15 [History] Diltiazem CD (24hr) [Cardizem CD] 360 mg PO DAILY #30 cap.er.24h 10/11/16 [Rx] Digoxin [Lanoxin] 125 mcg PO DAILY 11/22/16 [History] Furosemide [Lasix] 20 mg PO DAILY #30 tablet 11/25/16 [Rx] Metoprolol XL (24 HR) Succ [Toprol Xl] 100 mg PO DAILY 02/11/17 [History] Warfarin [Coumadin] 2 mg PO ONCE tablet 03/15/17 [Rx] Allergies/Adverse Reactions: Allergies Hydromorphone [From Dilaudid] Allergy (Unknown, Verified 03/14/17 04:58) See Comments PATIENT UNSURE OF REACTION- NONE LISTED WITH [facility]W Sulfa (Sulfonamide Antibiotics) Allergy (Unknown, Verified 03/14/17 04:58) See Comments PATIENT UNSURE OF REACTION- NONE LISTED WITH ECW atorvastatin [From Lipitor] Adverse Reaction (Verified 03/14/17 04:58) Cramping of the Muscles guaifenesin Adverse Reaction (Verified 03/14/17 04:58) Dry Mucus Membranes Procedures/tests Complete & Pending: Short CBC 03/15/17 Range/Units 05:15 WBC 11.3 H (4.3-11.1) K/mcL Hgb 11.7 L (12.9-16.9) g/dL Hct 33.4 L (37.5-50.1) % Plt Count 268 (140-400) K/mcL Neutrophils # 9.3 H (1.6-8.9) K/mcL BMP 03/15/17 Range/Units 05:15 Sodium 136 (136-145) mEq/L Potassium 3.7 (3.5-4.5) mEq/L Chloride 101 (98-109) mEq/L Carbon Dioxide 26 (19-29) mEq/L BUN 9 (8-26) mg/dL Creatinine 0.62 L (0.72-1.25) mg/dL Glucose 106 H (70-99) mg/dL Calcium 8.3 L (8.6-10.8) mg/dL Cardiac Enzymes 03/14/17 03/14/17 Range/Units 15:11 10:35 Troponin I 0.04 H* 0.04 H* (0-0.03) ng/mL Date of admission: 03/14/17 07:38 Primary care physician: Peter Mccallum MD Discharging clinician: Peter Mccallum Anticipated date of discharge: 03/15/17 - Patient Status Disposition: Transfer SNF Condition: Fair Functional capacity at discharge: wheelchair bound Overall status at discharge: patient is not back to baseline - Discharge Instructions Follow Up With: Peter Mccallum MD [Primary Care Provider] - - Diet and Activity Activity: as per physical therapy Diet: diabetic diet Interval History: Overnight the patient rested well. Last evening he ate 30% of his supper. He denies any cardiac, pulmonary, GI or symptoms this morning. He has continued extreme weakness and requires 2 people to set him up to the bedside commode. He was able with one person assistance to sit up in the bed so I can listen to his lungs. We discussed his need for ongoing care at [facility] and plans for discharge today. He has no questions. Hospital course: Mr. Bach is a 81 year old male with history of atrial fibrillation, pacemaker , diabetes mellitus, anticoagulated with Coumadin and history of Parkinson's disease was admitted to the hospital with decline in ADLs, not eating well for 3 -4 days, not able to assist with standing, requiring 2 people assistance to move him and general decline and failing to thrive was admitted to the hospital observation bed. No focal findings for an infection was noted. With IV fluids he improved but not back to baseline. His lactic acidosis cleared with IV fluids. His lab work has improved or is stable. He needs ongoing long term care and therapies for consideration of going back to home. He has had general decline over the past few months and has continued to fail. Likely part of this is due to his Parkinson's. Please see the diagnoses as above. - Time Spent with Patient Total time spent providing and/or coordinating discharge services: - Constitutional Vitals: Temp Pulse Resp BP Pulse Ox 97.8 F 60 16 117/68 95 03/15/17 04:00 03/15/17 04:00 03/15/17 04:00 03/15/17 04:00 03/15/17 04:00 General appearance: Present: cachectic, A&O X 2, loss of weight, answers questions appropriately - Neck Neck exam general surgery: Absent: lymphadenopathy, tenderness - Respiratory Respiratory exam: Present: CTAB. Absent: respiratory distress - Cardiovascular Cardiovascular exam: Present: RRR, +S1, +S2. Absent: systolic murmur Additional comments: Likely he is pacer dependent this morning as his rhythm is regular - GI/Abdominal GI/Abdominal exam: Present: soft. Absent: tenderness - Extremities Exam Extremities exam: Absent: calf tenderness, pedal edema, tenderness - Neurological Exam Additional comments: Generalized weakness. He can move all extremities in bed. No unilateral focal deficit. He has masklike face. He is slow to speak in very little spontaneous movement. - Skin Skin exam: Present: intact - VTE Reasons for not Prescribing Prophylaxis: Not indicated-Anticoagulated or INR therapeutic
[2017-03-15 07:22] VITALS: BP 122/80
[2017-03-15] MEDS: Carbidopa/Levodopa ER 50/200 TABLET PO SCH (08:09)
[2017-03-15] MEDS: Diltiazem CD (24hr) 180 MG CAPSULE PO SCH (08:09)
[2017-03-15] MEDS: Metoprolol XL (24 HR) Succ 50 MG TAB.ER.24H PO SCH (08:09)
[2017-03-15] MEDS: *HR* Metformin 500 MG TABLET PO SCH (08:09)
[2017-03-15] MEDS: Magnesium Oxide 400 MG TABLET PO SCH (08:09)
[2017-03-15] MEDS: *HR* Digoxin 0.125 MG TABLET PO SCH (08:09)
[2017-03-15] MEDS: Finasteride 5 MG TABLET PO SCH (08:09)
--- NOTE | 2017-03-15 09:49 | Physician Discharge Referral ---
ExtendedCare Referral Info [facility] To: [facility] Provider in Charge: Audra Provider in Charge after Transfer: Other (Audra) Institutional Level of Care: Skilled - Diagnosis (1) Failure to thrive in adult Priority: Primary Status: Acute (2) Mental status change Priority: Secondary Status: Acute (3) Generalized weakness Priority: Secondary Status: Acute (4) Hypertension Priority: Secondary Status: Chronic (5) Pacemaker Priority: Secondary Status: Chronic (6) Atrial fibrillation and flutter Priority: Secondary Status: Chronic (7) Troponin level elevated Priority: Secondary Status: Chronic (8) Diabetes type 2, controlled Priority: Secondary Status: Chronic (9) Chronic anticoagulation Priority: Secondary Status: Chronic (10) Parkinson disease Priority: Secondary Status: Chronic (11) Lactic acidosis Priority: Secondary Status: Resolved - Transfer Medications Home Medications: Carbidopa/Levodopa ER 50/200 [Sinemet ER 50-200 Tab] 1 tab PO BID 08/10/15 [ History] Esomeprazole Magnesium [Nexium] 40 mg PO DAILY 08/10/15 [History] Finasteride [Proscar] 5 mg PO DAILY 08/10/15 [History] Magnesium Oxide [Mag-Ox] 400 mg PO BID 08/10/15 [History] Metformin [Glucophage] 1,000 mg PO BIDWM 08/10/15 [History] Pravastatin Sodium [Pravachol] 80 mg PO DAILY 08/10/15 [History] Diltiazem CD (24hr) [Cardizem CD] 360 mg PO DAILY #30 cap.er.24h 10/11/16 [Rx] Digoxin [Lanoxin] 125 mcg PO DAILY 11/22/16 [History] Furosemide [Lasix] 20 mg PO DAILY #30 tablet 11/25/16 [Rx] Metoprolol XL (24 HR) Succ [Toprol Xl] 100 mg PO DAILY 02/11/17 [History] Warfarin [Coumadin] 2 mg PO ONCE tablet 03/15/17 [Rx] Allergies/Adverse Reactions: Allergies Hydromorphone [From Dilaudid] Allergy (Unknown, Verified 03/14/17 04:58) See Comments PATIENT UNSURE OF REACTION- NONE LISTED WITH [facility] Sulfa (Sulfonamide Antibiotics) Allergy (Unknown, Verified 03/14/17 04:58) See Comments PATIENT UNSURE OF REACTION- NONE LISTED WITH [facility] atorvastatin [From Lipitor] Adverse Reaction (Verified 03/14/17 04:58) Cramping of the Muscles guaifenesin Adverse Reaction (Verified 03/14/17 04:58) Dry Mucus Membranes - Respiratory Orders Smoking Cessation: Smoking cessation has been advised. For more information, call the [place] Tobacco Quit Line at 5-550-PKCW-NOW. - Ancillary Orders May use pressure relief devices daily prn, May go on INÉS w/family/respon constitution party w /meds at nurse discretion PRN - Advance Directives Living Will: Yes (DNRCCA) - Mobility Orders Ambulate (Needs help/PT) - Rehabiliation Orders Rehab Potential: Good Rehab Orders: Evaluation for Physical Therapy, Evaluation for Occupational Therapy - Diet Orders No Added Salt (RACHELE), No Concentrated Sweets CERTIFICATION: I certify that the transfer of the above named patient to an Extended Care Facility is necessary for the continuing treatment of the diagnosis listed. The above information is true and accurate reflection of patient's current condition. Confidential - Redisclosure prohibited without a patient's written consent.
[2017-03-15 16:59] LABS: Enterococcus by PCR Not Detected (Not Detect); blaKPC Carbapenem-Resist Gene Not Detected (Not Detect); mecA Methicillin-Resist Gene ***DETECTED*** (Not Detect); vanA/B Vancomycin-Resist Genes Not Detected (Not Detect)
[2017-03-15 17:00] LABS: Acinetobacter baumannii by PCR Not Detected (Not Detect); Candida albicans by PCR Not Detected (Not Detect); Candida glabrata by PCR Not Detected (Not Detect); Candida krusei by PCR Not Detected (Not Detect); Candida parapsilosis by PCR Not Detected (Not Detect); Candida tropicalis by PCR Not Detected (Not Detect); Escherichia coli by PCR Not Detected (Not Detect); Klebsiella oxytoca by PCR Not Detected (Not Detect); Klebsiella pneumoniae by PCR Not Detected (Not Detect); Pseudomonas aeruginosa by PCR Not Detected (Not Detect); Serratia marcescens by PCR Not Detected (Not Detect); Staphylococcus aureus by PCR Not Detected (Not Detect); Streptococcus agalactiae(B)PCR Not Detected (Not Detect); Streptococcus by PCR Not Detected (Not Detect); Streptococcus pneumoniae PCR Not Detected (Not Detect); Streptococcus pyogenes (A) PCR Not Detected (Not Detect)
== END 2017-03-15 10:45 ==
LOC: EMEROOGRE 04:49 → INPGRE 04:49
PROVIDERS: ADMIT Family Medicine; ATTEND Family Medicine